=== PATIENT | female | born 1955 | race Caucasian/White ===

== ENCOUNTER 2020-02-12 13:43 | Outpatient (CLI) | payer OTHER, SELFPAY ==
--- NOTE | 2020-02-12 13:47 | MM_ITS ---
WS: [id number] BILATERAL DIGITAL SCREENING MAMMOGRAPHY WITH CAD CLINICAL INFORMATION: SCREENING HISTORY: Screening mammogram. No current complaints. COMPARISON: October 19, 2018 TECHNIQUE: Bilateral CC and MLO views. FINDINGS: Scattered fibroglandular densities bilaterally. No suspicious focal mass, asymmetry, calcifications, or architectural distortion. No evidence of malignancy. MM/[place] [id number] IMPRESSION: BI-RADS: 1-Negative FOLLOW UP: 1 Year Follow-up Recommend return to annual screening mammography.
== END 2020-02-12 13:44 | disposition home or self-care (01) ==
LOC: RADSHAW 13:46
PROVIDERS: PCP Internal Medicine; Visit Provider Internal Medicine
DX: Z12.31 Encounter for screening mammogram for malignant neoplasm of breast (principal)
CPT/HCPCS: 77067

== ENCOUNTER 2020-03-12 13:04 | Outpatient (CLI) | payer OTHER, SELFPAY ==
[2020-03-12 13:42] LABS: Basophils % 0.6 %; Eosinophils # 0.1 10^3/uL (0.0-0.8); Eosinophils % 2.3 %; Hematocrit 37.4 % (37.0-47.0); Hemoglobin 12.2 g/dL (11.5-15.3); Lymphocytes # 0.5 10^3/uL (0.8-4.8); Lymphocytes % 15.5 %; Mean Corpuscular HGB Conc 32.6 g/dL (30.0-36.0); Mean Corpuscular Hemoglobin 28.7 pg (28.0-34.0); Mean Platelet Volume 12.4 fL (7.4-10.4); Monocytes # 0.3 10^3/uL (0.2-0.9); Neutrophils # 2.17 10^3/uL (1.8-7.7); Neutrophils % 70.3 %; Nucleated Red Blood Cells % 0 %; Platelet Count 139 10^3/cmm (130-400); Red Blood Count 4.25 10^6/uL (4.1-5.3); Red Cell Distribution Width 13.3 % (12.1-15.1); White Blood Count 3.1 10^3/uL (4.0-10.0)
[2020-03-12 13:59] LABS: Alanine Aminotransferase 19 U/L (0-33); Albumin Level 4.6 g/dL (3.5-5.2); Alkaline Phosphatase 96 IU/L (35-105); Aspartate Amino Transferase 21 U/L (0-32); Blood Urea Nitrogen 17 mg/dL (8-23); Calcium 9.3 mg/dL (8.5-10.5); Carbon Dioxide 24 mmol/L (22-29); Chloride 107 mmol/L (98-107); Globulin 2.2 g/dL (1.3-4.6); Glucose 119 mg/dL (65-115); Lactate Dehydrogenase 258 U/L (135-214); Osmolality Calculated 290 mOsm/kg (285-295); Sodium 141 mmol/L (136-145); Total Bilirubin 0.2 mg/dL (0.15-1.2); Total Protein 6.8 g/dL (6.6-8.7)
[2020-03-12 15:55] LABS: Erythrocyte Sedimentation Rate 24 mm/hr (0-15)
--- NOTE | 2020-03-12 18:34 | ONC FU_ITS ---
Dr. Gonzalez Patient Follow-Up Note Patient: Danny Min Unit #: [id number]: [id number] Dicatated By: Werner Gonzalez M.D.Date of Visit:Mar 12, 2020 Onc Med Follow-up/Prog Note Chief Complaint: Pancytopenia. 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 She had become acutely ill requiring hospital admission on 11/12/2017. Her symptoms included fever as high as 104???, high blood pressure, and tachycardia. She was admitted with a presumptive diagnosis of urinary tract infection and sepsis. Her urine culture subsequently did grow Escherichia coli, but blood culture was negative. Her initial CBC showed borderline hemoglobin at 12.7 g with white blood cell count low at 2100 and platelet count low at 67,000. The absolute neutrophil count was 1700. The red cell indices were in the low-normal range. The alkaline phosphatase was minimally elevated 119/117 IU/L. The other liver enzymes and the bilirubin were normal. She was discharged on 11/15/2017 to continue antibiotic coverage with Levaquin 750 mg daily. Her CBC at discharge showed hemoglobin 10.5 g, white blood cell count 4700, and platelet count 72,000. On 11/24/2017 she was back in the emergency room with fever and diffuse maculopapular skin eruption. This was ultimately determined to be a hypersensitivity reaction to Dexilant. However, her repeat laboratory studies on 11/25/2017 showed hemoglobin 10.2 g with white blood cell count back down to 1800 and platelet count 54,000. The absolute neutrophil count was 1200. Her B12 level was normal at 533 pg/mL. LDH was mildly elevated at 259/246 U/L. Serum iron studies show transferrin saturation slightly low at 19.9%. The ferritin was elevated at 423 ng/mL. Sedimentation rate was significantly elevated at 86 mm/hour with CRP mildly elevated at 1.810 mg/dL. The protein electrophoresis had a normal pattern. Blood cultures were again negative. Stool FIT was negative. She was discharged home on Protonix, which she stopped taking, as it was causing abdominal cramping and diarrhea. In the meantime, on 11/29/2017 she underwent outpatient bone marrow aspiration/biopsy. The preliminary findings include hypercellularity, estimated at 80-85%, but with no evidence of infiltrative process and just limited megakaryocyte dyspoiesis. Lymphoid aggregates were present and appeared to be benign. Iron stores were 2+/4+. There were no ring sideroblasts noted. The flow cytometry showed no aberrant myeloid or lymphoid populations. The FISH panel for MDS was unrevealing, and the standard chromosome analysis was normal. Overall, the findings were nonspecific. I had seen her initially on 12/01/2017. At that point her symptoms were improving, and her blood counts also appeared to be recovering. Her platelet count had increased to 121,000 with white blood cell count 3200 and hemoglobin 12.9 g. Given the bone marrow findings, I had recommended observation/expectant management. As of her follow-up visit on 12/29/2017 her platelet count had dropped back down to 23,000 with white blood cell count decreased to 2300 and hemoglobin stable at 11.8 g. During subsequent follow-up, there was further decrease in the platelet count to 10,000 with WBC 1500 and Hg 12.2 g. She was then treated with IVIG 1 gm/kg by IV infusion on 01/09 and 01/10/2018. She had some headache and some anxiety with the IVIG, but she otherwise tolerated it well. As of 01/15/2018 her platelet had increased to 66,000 with WBC 2600 and hemoglobin 11.5 gm. Her sedimentation rate remained significantly elevated at 74 mm/hour. She was then followed on observation. As of 02/07/2018 her platelet count had dropped back down to 8000. Her white count at that point had decreased to 1800 with absolute neutrophil count 1000. The hemoglobin was down slightly, to 10.7 g. She was then retreated with IVIG 1 g/kg but IV infusion daily for 2 days, completed on 02/10/2018. Her repeat CBC on 02/12/2018 showed hemoglobin 10.0 g with white blood cell count increased to 4700 and platelet count back up to 54,000. She then started prednisone at 20 mg 3 times a day. As of her follow-up visit on 02/23/2018 her platelet count had increased to 119,000 with hemoglobin 11.6 g and white blood cell count 8700. Her sedimentation rate was still significantly elevated at 76 mm/hour. Her prednisone dosage was reduced to 20 mg twice a day. She was then seen again on 03/27/2018. Her blood counts were basically stable, and she appeared stable clinically. Her prednisone dosage was reduced to 20 mg daily. As a precaution, I did have her further evaluated with CT scans of chest, abdomen, and pelvis. The previously described iliac chain lymphadenopathy had resolved. There were no other significant findings. Had a follow-up visit on 05/03/2018 her blood counts have remained stable and she appeared stable clinically. Her prednisone dosage was reduced to 10 mg daily. In July it was further reduced to 5 mg daily. At her follow-up visit on 11/06/2018 her blood counts appeared stable. Over the next 4 weeks the prednisone was further tapered and discontinued. As of her follow-up visit in January 2019 her blood counts appeared stable. She was having more joint pain, and she had developed some mild swelling. She also had been treated for superficial phlebitis of her right leg. At that point she had started meloxicam for the joint pain, and she was given a prescription for furosemide for the swelling. She continued observation/expectant management for the pancytopenia. Her other medical illnesses include dyslipidemia, hypothyroidism, degenerative arthritis/degenerative disease of the spine, chronic migraine, and anxiety/depression. Her only surgery was a partial hysterectomy in 1989. She is a nonsmoker. INTERIM HISTORY: She is seen for a follow-up visit. She has been feeling good generally. She says her energy improved somewhat with an increase in her levothyroxine dosage. She has normal activity. Her appetite is good. She has not had fever. She does have some hot flashes. She has sinus drainage with occasional cough. She does not complain of shortness of breath or chest pain. She has no GI or complaints. She has some joint stiffness and soreness, mainly in the mornings. She has headache associated with neck pain, but recently that has not been too bad. She has numbness/tingling in her hands and feet. She has some bruising, but not bad. Medications: B-12 1 Tablet (of 1000 mcg) Oral daily, BuPROPion HCl ER (XL) 1 Tablet (of 300 mg) Tablet SR 24 HR Oral daily, Calcium 1 Tablet Oral daily, Cetirizine HCl 1 Tablet (of 10 mg) Oral daily, Cholecalciferol 2 Tablet (of 5000 Units) Oral q 7 days, Cranberry Extract 1 Capsule (of 200 mg) Oral daily, Famotidine 1 Tablet (of 40 mg) Oral daily, Gabapentin 2 Capsule (of 300 mg) Oral b.i.d., Lasix 1 Tablet (of 20 mg) Oral daily PRN, Levothyroxine Sodium 1 Tablet (of 88 mcg) Oral daily, Magnesium 1 Tablet (of 250 mg) Oral daily, Meloxicam 1 Tablet (of 15 mg) Oral daily, Osteo Bi-Flex Regular Strength 1 Tablet (of 250-200 mg) Oral daily, Potassium Chloride ER 1 Tablet (of 10 meq) Tablet, controlled release Oral daily, Probiotic 1 Capsule Oral daily, Simvastatin 1 Tablet (of 20 mg) Oral daily, Singulair 1 Tablet (of 10 mg) Oral daily, Tramadol-Acetaminophen 1 Tablet (of 37.5-325 mg) Oral b.i.d. PRN Allergies: Bacitracin, Celecoxib, Clarithromycin, Clindamycin HCl, Excedrin Back & Body, Neomycin Sulfate, and Polymyxin B Sulfate. Review of Systems: Constitutional - She is feeling good and her energy has improved since her levothyroxine was increased. She has normal activity. Her appetite is good and weight is up a few pounds. No fevers. She continues to have some hot flashes with sweating. ECOG score is 0, ENMT - She has sinus congestion/drainage. No mouth sores. No sore throat or difficulty swallowing, Hematologic/Lymphatic - She bruises easily, Respiratory - No shortness of breath. She has just occasional cough. No pleuritic pain or hemoptysis, Cardiovascular - No angina pain. No palpitations, Gastrointestinal - No nausea or vomiting. Her heartburn is adquately managed with famotidine. No diarrhea or constipation. No blood in the stool or black stools, Genitourinary (F) - No dysuria or hematuria. She has urinary frequency. No urgency or incontinence, Musculoskeletal - She has some joint stiffiness and soreness, especially in the mornings, Integumentary - No skin complications, Neurologic - No headache or dizziness. She has some occasional numbness and tingling in her fingers. No other focal neurologic symptoms, Psychiatric - No anxiety or depression. No insomnia. Vital Signs: Blood pressure 151/68, pulse 70, respirations 20, temp 97.4 degrees, oxygen saturation 97%. Her weight is 175 pounds. Physical Examination: Constitutional - She looks good generally, Eyes - Sclerae nonicteric. Conjunctivae clear, ENMT - No lesions in the oral cavity, Hematologic/Lymphatic - No cervical, clavicular, or axillary adenopathy, Respiratory - Lungs are clear with good air movement bilaterally, Cardiovascular - Heart rhythm is regular. There is no murmur, gallop or rub noted, Abdomen - Soft. Liver and spleen are not enlarged. There is no abdominal mass or ascites noted and there is no inguinal adenopathy, Extremities - Slight edema. There are just a few scattered ecchymoses, Neurologic - No focal neurologic deficits noted. Lab/Imaging: Test performed on Mar 12, 2020 13:15 LDH (Total) 258 U/L Sodium 141 mmol/L Potassium 4.0 mmol/L Chloride 107 mmol/L CO2 24 mmol/L Anion Gap 14.0 BUN 17 mg/dL Creatinine 0.9 mg/dL Cr Clearance (Est) 74.4300 mL/min eGFR 63.0 mL/min Glucose 119 mg/dL Calcium 9.3 mg/dL Protein, Total 6.8 g/dL Albumin 4.6 g/dL Globulin 2.2 g/dL Bilirubin, Total 0.2 mg/dL ALT (SGPT) 19 U/L AST (SGOT) 21 U/L Alkaline Phosphatase 96 IU/L ESR (Sed Rate) 24 mm/hr WBC 3.1 10 3/uL RBC 4.25 10 6/uL HGB 12.2 g/dL HCT 37.4 % MCV 88.0 fL MCH 28.7 pg MCHC 32.6 g/dL RDW 13.3 % Platelet Count 139 10 3/cmm MPV 12.4 fL Neutrophils 2.17 10 3/uL Lymphocytes 0.5 10 3/uL Monocytes 0.3 10 3/uL Eosinophils 0.1 10 3/uL Basophils 0.0 10 3/uL Neutrophil % 70.3 % Lymphocyte % 15.5 % Monocyte % 11.0 % Eosinophil % 2.3 % Basophils % 0.6 % NRBC % 0 % Impression: 1. Patient had presented with mild to moderately severe pancytopenia. Etiology was uncertain, but I it appeared to be most likely postinfectious. Bone marrow aspiration/biopsy on 11/29/2017 showed hypercellularity at 80-85%. There were no other diagnostic findings. 2. She had a hospital admission on 11/12/2017 for Escherichia coli urinary tract infection with associated sepsis. 3. She had a second hospital admission on 11/25/2017 for hypersensitivity reaction to Dexilant. Her other medical illnesses include: 4. Dyslipidemia. 5. Hypothyroidism. 6. Degenerative arthritis/degenerative disease of the spine. 7. Seasonal allergies. 8. She has a history of chronic migraine. 9. She has chronic anxiety/depression. Initially, she appeared to be showing recovery of her blood counts, and her symptoms had mostly resolved. However, her repeat CBC from 12/29/2017 still showed mild anemia along with some decline in her neutrophil count and a significant decline in her platelet count. During subsequent follow-up, the platelet count continued to decline. As of 01/08/2018 was down to 10,000. Her hemoglobin was stable at 12.2 g, but her white blood cell count had decreased to 1500. Given the predominant thrombocytopenia in the setting of nonspecific bone marrow findings, I had suspected that at least some component of it was immune mediated. She was then given empiric treatment with IVIG, 75 g by IV infusion on 01/09 and 01/10/2018. She did show some response with her platelet count increasing to 66,000 on 01/15/2018. Her hemoglobin at that point was stable at 11.7 g. Her white blood cell count had increased slightly, to 2300. Her sedimentation rate remained moderately elevated at 74 mm/hour. She was then followed on observation. As of 02/07/2018 her platelet count had dropped back down to 8000. Her hemoglobin was down slightly to 10.7 g. Her white blood cell count had decreased to 1800 with absolute neutrophil count 1000. She was retreated with IVIG, 1 g/kg by IV infusion daily for 2 days, completed on 02/10/2018. She again showed a modest response. As of 02/12/2018 she was then started on steroid therapy with prednisone 20 mg 3 times a day. She had a very significant response to the prednisone, though during follow-up she continued to have mild thrombocytopenia. Her sedimentation rate had initially remained significantly elevated, but it did gradually come down. She was able to gradually taper down her steroid dosage. At her followup visit on 11/06/2018 she appeared stable clinically. Over the next 4 weeks her prednisone was tapered off and discontinued. During subsequent follow-up she required treatment superficial phlebitis of her right leg. At her follow-up visit in January 2019 she reported increased pain and swelling in her hands and in her lower extremities, but her blood counts appeared stable. She had symptomatic improvement on meloxicam and furosemide. She continued observation/expectant management for the low blood counts. At this point she continues to have some fatigue and she still has some mild joint pain and stiffness. Her energy has improved somewhat with an increase in her levothyroxine dosage. She continues to have mild neutropenia and a borderline platelet count, but her blood counts are stable. Overall, she appears to be doing well clinically. Plan: She remains on observation/expectant management for the thrombocytopenia. She has follow-up scheduled with Dr. Denis in July. As such, I will schedule her for a repeat CBC in May and for a follow-up visit in October 2020. Signed By: Werner Gonzalez M.D. <<Signature on File>>
== END 2020-03-12 13:05 | disposition home or self-care (01) ==
LOC: ONCMED 13:07
PROVIDERS: PCP Internal Medicine; Visit Provider Internal Medicine Medical Oncology
DX: D69.3 Immune thrombocytopenic purpura (principal); E78.5 Hyperlipidemia, unspecified; E03.9 Hypothyroidism, unspecified; M19.90 Unspecified osteoarthritis, unspecified site; G43.709 Chronic migraine without aura, not intractable, without status migrainosus
CPT/HCPCS: 80053; 83615; 85025; 85651; G0463

== ENCOUNTER 2020-06-15 10:09 | Outpatient (CLI) | payer OTHER, SELFPAY ==
[2020-06-15 11:07] LABS: Basophils % 0.7 %; Eosinophils # 0.1 10^3/uL (0.0-0.8); Hematocrit 37.4 % (37.0-47.0); Hemoglobin 12.3 g/dL (11.5-15.3); Lymphocytes # 0.5 10^3/uL (0.8-4.8); Lymphocytes % 15.3 %; Mean Corpuscular HGB Conc 32.9 g/dL (30.0-36.0); Mean Corpuscular Hemoglobin 28.7 pg (28.0-34.0); Mean Corpuscular Volume 87.4 fL (81-99); Mean Platelet Volume 12.6 fL (7.4-10.4); Monocytes # 0.3 10^3/uL (0.2-0.9); Neutrophils # 2.12 10^3/uL (1.8-7.7); Neutrophils % 70.7 %; Nucleated Red Blood Cells % 0 %; Platelet Count 135 10^3/cmm (130-400); Red Blood Count 4.28 10^6/uL (4.1-5.3); Red Cell Distribution Width 13.2 % (12.1-15.1)
== END 2020-06-15 10:10 | disposition home or self-care (01) ==
LOC: ONCMED 10:10
PROVIDERS: PCP Internal Medicine; Visit Provider Internal Medicine Medical Oncology
DX: D69.6 Thrombocytopenia, unspecified (principal)
CPT/HCPCS: 36415; 85025

== ENCOUNTER 2020-11-09 13:01 | Outpatient (CLI) | payer MEDICARE, BC, SELFPAY ==
[2020-11-09 13:44] LABS: Basophils % 0.7 %; Eosinophils # 0.1 10^3/uL (0.0-0.8); Eosinophils % 3.1 %; Hematocrit 37.9 % (37.0-47.0); Hemoglobin 12.4 g/dL (11.5-15.3); Lymphocytes # 0.4 10^3/uL (0.8-4.8); Lymphocytes % 13.3 %; Mean Corpuscular HGB Conc 32.7 g/dL (30.0-36.0); Mean Corpuscular Hemoglobin 28.9 pg (28.0-34.0); Mean Corpuscular Volume 88.3 fL (81-99); Mean Platelet Volume 12.3 fL (7.4-10.4); Monocytes # 0.3 10^3/uL (0.2-0.9); Monocytes % 10.9 %; Neutrophils % 71.7 %; Nucleated Red Blood Cells % 0 %; Platelet Count 141 10^3/cmm (130-400); Red Blood Count 4.29 10^6/uL (4.1-5.3); Red Cell Distribution Width 13.7 % (12.1-15.1); White Blood Count 2.9 10^3/uL (4.0-10.0)
[2020-11-09 14:07] LABS: Alanine Aminotransferase 18 U/L (0-33); Albumin Level 4.1 g/dL (3.5-5.2); Alkaline Phosphatase 102 IU/L (35-105); Aspartate Amino Transferase 18 U/L (0-32); Blood Urea Nitrogen 19 mg/dL (8-23); Calcium 9.1 mg/dL (8.5-10.5); Carbon Dioxide 24 mmol/L (22-29); Chloride 106 mmol/L (98-107); Globulin 2.9 g/dL (1.3-4.6); Glomerular Filtration Rate 62.8 mL/min (90-130); Glucose 107 mg/dL (65-115); Lactate Dehydrogenase 219 U/L (135-214); Osmolality Calculated 291 mOsm/kg (285-295); Sodium 139 mmol/L (136-145); Total Bilirubin 0.2 mg/dL (0.15-1.2)
--- NOTE | 2020-11-09 18:32 | ONC FU_ITS ---
Dr. Gonzalez Patient Follow-Up Note Patient: Danny Min Unit #: [id number]: 1955 Dicatated By: Werner Gonzalez M.D.Date of Visit:Nov 09, 2020 Onc Med Follow-up/Prog Note Chief Complaint: Pancytopenia. 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 She had become acutely ill requiring hospital admission on 11/12/2017. Her symptoms included fever as high as 104???, high blood pressure, and tachycardia. She was admitted with a presumptive diagnosis of urinary tract infection and sepsis. Her urine culture subsequently did grow Escherichia coli, but blood culture was negative. Her initial CBC showed borderline hemoglobin at 12.7 g with white blood cell count low at 2100 and platelet count low at 67,000. The absolute neutrophil count was 1700. The red cell indices were in the low-normal range. The alkaline phosphatase was minimally elevated 119/117 IU/L. The other liver enzymes and the bilirubin were normal. She was discharged on 11/15/2017 to continue antibiotic coverage with Levaquin 750 mg daily. Her CBC at discharge showed hemoglobin 10.5 g, white blood cell count 4700, and platelet count 72,000. On 11/24/2017 she was back in the emergency room with fever and diffuse maculopapular skin eruption. This was ultimately determined to be a hypersensitivity reaction to Dexilant. However, her repeat laboratory studies on 11/25/2017 showed hemoglobin 10.2 g with white blood cell count back down to 1800 and platelet count 54,000. The absolute neutrophil count was 1200. Her B12 level was normal at 533 pg/mL. LDH was mildly elevated at 259/246 U/L. Serum iron studies show transferrin saturation slightly low at 19.9%. The ferritin was elevated at 423 ng/mL. Sedimentation rate was significantly elevated at 86 mm/hour with CRP mildly elevated at 1.810 mg/dL. The protein electrophoresis had a normal pattern. Blood cultures were again negative. Stool FIT was negative. She was discharged home on Protonix, which she stopped taking, as it was causing abdominal cramping and diarrhea. In the meantime, on 11/29/2017 she underwent outpatient bone marrow aspiration/biopsy. The preliminary findings include hypercellularity, estimated at 80-85%, but with no evidence of infiltrative process and just limited megakaryocyte dyspoiesis. Lymphoid aggregates were present and appeared to be benign. Iron stores were 2+/4+. There were no ring sideroblasts noted. The flow cytometry showed no aberrant myeloid or lymphoid populations. The FISH panel for MDS was unrevealing, and the standard chromosome analysis was normal. Overall, the findings were nonspecific. I had seen her initially on 12/01/2017. At that point her symptoms were improving, and her blood counts also appeared to be recovering. Her platelet count had increased to 121,000 with white blood cell count 3200 and hemoglobin 12.9 g. Given the bone marrow findings, I had recommended observation/expectant management. As of her follow-up visit on 12/29/2017 her platelet count had dropped back down to 23,000 with white blood cell count decreased to 2300 and hemoglobin stable at 11.8 g. During subsequent follow-up, there was further decrease in the platelet count to 10,000 with WBC 1500 and Hg 12.2 g. She was then treated with IVIG 1 gm/kg by IV infusion on 01/09 and 01/10/2018. She had some headache and some anxiety with the IVIG, but she otherwise tolerated it well. As of 01/15/2018 her platelet had increased to 66,000 with WBC 2600 and hemoglobin 11.5 gm. Her sedimentation rate remained significantly elevated at 74 mm/hour. She was then followed on observation. As of 02/07/2018 her platelet count had dropped back down to 8000. Her white count at that point had decreased to 1800 with absolute neutrophil count 1000. The hemoglobin was down slightly, to 10.7 g. She was then retreated with IVIG 1 g/kg but IV infusion daily for 2 days, completed on 02/10/2018. Her repeat CBC on 02/12/2018 showed hemoglobin 10.0 g with white blood cell count increased to 4700 and platelet count back up to 54,000. She then started prednisone at 20 mg 3 times a day. As of her follow-up visit on 02/23/2018 her platelet count had increased to 119,000 with hemoglobin 11.6 g and white blood cell count 8700. Her sedimentation rate was still significantly elevated at 76 mm/hour. Her prednisone dosage was reduced to 20 mg twice a day. She was then seen again on 03/27/2018. Her blood counts were basically stable, and she appeared stable clinically. Her prednisone dosage was reduced to 20 mg daily. As a precaution, I did have her further evaluated with CT scans of chest, abdomen, and pelvis. The previously described iliac chain lymphadenopathy had resolved. There were no other significant findings. Had a follow-up visit on 05/03/2018 her blood counts have remained stable and she appeared stable clinically. Her prednisone dosage was reduced to 10 mg daily. In July it was further reduced to 5 mg daily. At her follow-up visit on 11/06/2018 her blood counts appeared stable. Over the next 4 weeks the prednisone was further tapered and discontinued. As of her follow-up visit in January 2019 her blood counts appeared stable. She was having more joint pain, and she had developed some mild swelling. She also had been treated for superficial phlebitis of her right leg. At that point she had started meloxicam for the joint pain, and she was given a prescription for furosemide for the swelling. She continued observation/expectant management for the pancytopenia. Her other medical illnesses include dyslipidemia, hypothyroidism, degenerative arthritis/degenerative disease of the spine, chronic migraine, and anxiety/depression. Her only surgery was a partial hysterectomy in 1989. She is a nonsmoker. INTERIM HISTORY: She is seen for a follow-up visit. She has been feeling good generally. Her energy is not as good some days, but she has normal activity. ECOG score 0. Her appetite has been good. She has not had fever or night sweats. She occasionally has mild hot flashes, attributable to medication. She does not complain of shortness of breath, cough, or chest pain. She has no GI or complaints. Her joints have been a little sore, mainly her hands, and especially in the mornings. It is managed adequately with meloxicam. She has occasional sinus headache. She does not complain of dizziness. She has no focal neurologic symptoms. She has no abnormal bruising or bleeding. Medications: B-12 1 Tablet (of 1000 mcg) Oral daily, BuPROPion HCl ER (XL) 1 Tablet (of 300 mg) Tablet SR 24 HR Oral daily, Calcium 1 Tablet Oral daily, Cetirizine HCl 1 Tablet (of 10 mg) Oral daily, Cholecalciferol 2 Tablet (of 5000 Units) Oral q 7 days, Cranberry Extract 1 Capsule (of 200 mg) Oral daily, Famotidine 1 Tablet (of 40 mg) Oral daily, Gabapentin 2 Capsule (of 300 mg) Oral b.i.d., Lasix 1 Tablet (of 20 mg) Oral daily PRN, Levothyroxine Sodium 1 Tablet (of 88 mcg) Oral daily, Magnesium 1 Tablet (of 250 mg) Oral daily, Meloxicam 1 Tablet (of 15 mg) Oral daily, Osteo Bi-Flex Regular Strength 1 Tablet (of 250-200 mg) Oral daily, Potassium Chloride ER 1 Tablet (of 10 meq) Tablet, controlled release Oral daily, Probiotic 1 Capsule Oral daily, Simvastatin 1 Tablet (of 20 mg) Oral daily, Singulair 1 Tablet (of 10 mg) Oral daily, Tramadol-Acetaminophen 1 Tablet (of 37.5-325 mg) Oral b.i.d. PRN Allergies: Bacitracin, Celecoxib, Clarithromycin, Clindamycin HCl, Excedrin Back & Body, Neomycin Sulfate, and Polymyxin B Sulfate. Vital Signs: Performed on Nov 09, 2020 15:18 Height - 65.00 in Weight - 172.6 lbs (LOW) BSA - 1.86 sq.m BMI - 28.72 Temperature - 97.5 F (LOW) Pulse - 68 /min Respiration - 18 /min BP - 172/81 mm(hg) (HIGH) O2 Sat - 96 % Pain - 0 Fatigue - 0 Physical Examination: Constitutional - She looks good generally, Eyes - Sclerae nonicteric. Conjunctivae clear, ENMT - No lesions in the oral cavity, Hematologic/Lymphatic - No cervical, clavicular, or axillary adenopathy, Respiratory - Lungs are clear with good air movement bilaterally, Cardiovascular - Heart rhythm is regular. There is no murmur, gallop, or rub noted, Abdomen - Soft. Liver and spleen are not enlarged. There is no abdominal mass or ascites noted and there is no inguinal adenopathy, Extremities - No edema, Neurologic - No focal neurologic deficits noted. Lab/Imaging: Test performed on Nov 09, 2020 13:19 LDH (Total) 219 U/L Sodium 139 mmol/L Potassium 4.0 mmol/L Chloride 106 mmol/L CO2 24 mmol/L Anion Gap 13.0 BUN 19 mg/dL Creatinine 0.9 mg/dL Cr Clearance (Est) 73.4500 mL/min eGFR 62.8 mL/min Glucose 107 mg/dL Osmolality - Calculated 291 mOsm/kg Calcium 9.1 mg/dL Protein, Total 7.0 g/dL Albumin 4.1 g/dL Globulin 2.9 g/dL Bilirubin, Total 0.2 mg/dL ALT (SGPT) 18 U/L AST (SGOT) 18 U/L Alkaline Phosphatase 102 IU/L WBC 2.9 10 3/uL RBC 4.29 10 6/uL HGB 12.4 g/dL HCT 37.9 % MCV 88.3 fL MCH 28.9 pg MCHC 32.7 g/dL RDW 13.7 % Platelet Count 141 10 3/cmm MPV 12.3 fL Neutrophils 2.10 10 3/uL Lymphocytes 0.4 10 3/uL Monocytes 0.3 10 3/uL Eosinophils 0.1 10 3/uL Basophils 0.0 10 3/uL Neutrophil % 71.7 % Lymphocyte % 13.3 % Monocyte % 10.9 % Eosinophil % 3.1 % Basophils % 0.7 % NRBC % 0 % Problem List: 1. Patient was found in October 2017 to have mild to moderately severe pancytopenia. Etiology was uncertain. Initially it appeared to be most likely postinfectious, but ultimately it did appear to be most likely autoimmune. 2. Dyslipidemia. 3. Hypothyroidism. 4. Degenerative arthritis/degenerative disease of the spine. 5. Seasonal allergies. 6. She has a history of chronic migraine. 7. She has chronic anxiety/depression. Problems Addressed with this Encounter and Plan: Patient with mild to moderately severe pancytopenia, first discovered in October 2017 during a hospital admission for Escherichia coli urinary tract infection with associated sepsis. It was initially suspected to be postinfectious, but ultimately it appeared more likely to be autoimmune. Bone marrow aspiration/biopsy on 11/29/2017 showed hypercellularity at 80-85%. There were no other diagnostic findings. As of 01/08/2018 her platelet count had declined to 10,000. Her hemoglobin was stable at 12.2 g, but her white blood cell count had decreased to 1500. Given the predominant thrombocytopenia in the setting of nonspecific bone marrow findings, I had suspected that at least some component of it was immune mediated. She was then given empiric treatment with IVIG, 75 g by IV infusion on 01/09 and 01/10/2018. She did show some response with her platelet count increasing to 66,000 on 01/15/2018. Her hemoglobin at that point was stable at 11.7 g. Her white blood cell count had increased slightly, to 2300. Her sedimentation rate remained moderately elevated at 74 mm/hour. As of 02/07/2018 her platelet count had dropped back down to 8000. Her hemoglobin was down slightly to 10.7 g. Her white blood cell count had decreased to 1800 with absolute neutrophil count 1000. She was retreated with IVIG, 1 g/kg by IV infusion daily for 2 days, completed on 02/10/2018. She again showed a modest response. As of 02/12/2018 she started steroid therapy with prednisone 20 mg 3 times a day. She had a very significant response to the prednisone, though during follow-up she continued to have mild thrombocytopenia. Her sedimentation rate had initially remained significantly elevated, but it did gradually come down. She was then able to gradually taper down her steroid dosage. At her followup visit on 11/06/2018 she appeared stable clinically. Over the next 4 weeks her prednisone was tapered off and discontinued. During subsequent follow-up she has had some fatigue and some joint pain. Her blood counts, though, have been stable with mild to moderately severe leukopenia and with normal hemoglobin/hematocrit levels and normal platelet counts. Overall, she appears to be doing well clinically. She remains on observation/expectant management. She will have a repeat CBC with Dr. Denis in January. I will see her again in 6 months. Signed By: Werner Gonzalez M.D. <<Signature on File>>
== END 2020-11-09 13:02 | disposition home or self-care (01) ==
LOC: ONCMED 13:06
PROVIDERS: PCP Internal Medicine; Visit Provider Internal Medicine Medical Oncology
DX: D69.3 Immune thrombocytopenic purpura (principal); D61.818 Other pancytopenia; E78.5 Hyperlipidemia, unspecified; E03.9 Hypothyroidism, unspecified; M47.9 Spondylosis, unspecified; J30.9 Allergic rhinitis, unspecified; G43.919 Migraine, unspecified, intractable, without status migrainosus; F41.9 Anxiety disorder, unspecified; F32.9 Major depressive disorder, single episode, unspecified; Z79.899 Other long term (current) drug therapy
CPT/HCPCS: 36415; 80053; 83615; 85025; G0463

== ENCOUNTER 2021-03-11 09:02 | Outpatient (CLI) | payer MEDICARE, BC, SELFPAY ==
--- NOTE | 2021-03-11 09:12 | MM_ITS ---
WS: [id number] BILATERAL SCREENING DIGITAL MAMMOGRAM WITH CAD HISTORY: SCREENING COMPARISON: 02/12/2020 and 10/19/2018 Bilateral CC and MLO views submitted. Computer aided detection analyzed. Breast composition: There are scattered areas of fibroglandular density. No suspicious masses, microc alcifications or architectural distortion. MM/[id number] IMPRESSION: BI-RADS: 1-Negative FOLLOW UP: 1 Year Follow-up
== END 2021-03-11 09:03 | disposition home or self-care (01) ==
LOC: RADSHAW 09:09
PROVIDERS: PCP Internal Medicine; Visit Provider Internal Medicine
DX: Z12.31 Encounter for screening mammogram for malignant neoplasm of breast (principal)
CPT/HCPCS: 77067

== ENCOUNTER 2021-05-10 14:00 | Outpatient (CLI) | payer MEDICARE, BC, SELFPAY ==
[2021-05-10 15:35] LABS: Basophils % 0.6 %; Eosinophils # 0.1 10^3/uL (0.0-0.8); Eosinophils % 2.5 %; Hemoglobin 12.9 g/dL (11.5-15.3); Lymphocytes # 0.5 10^3/uL (0.8-4.8); Lymphocytes % 16.1 %; Mean Corpuscular HGB Conc 33.1 g/dL (30.0-36.0); Mean Corpuscular Volume 90.7 fl (81-99); Mean Platelet Volume 12.2 fL (7.4-10.4); Monocytes # 0.3 10^3/uL (0.2-0.9); Monocytes % 10.4 %; Neutrophils # 2.22 10^3/uL (1.8-7.7); Neutrophils % 70.4 %; Nucleated Red Blood Cells % 0 %; Platelet Count 134 10^3/cmm (130-400); Red Cell Distribution Width 13.6 % (12.1-15.1); White Blood Count 3.2 10^3/uL (4.0-10.0)
[2021-05-10 16:00] LABS: Alanine Aminotransferase 16 U/L (0-33); Albumin Level 4.2 g/dL (3.5-5.2); Alkaline Phosphatase 101 IU/L (35-105); Aspartate Amino Transferase 17 U/L (0-32); Blood Urea Nitrogen 16 mg/dL (8-23); Carbon Dioxide 27 mmol/L (22-29); Chloride 104 mmol/L (98-107); Glucose 113 mg/dL (65-115); Lactate Dehydrogenase 263 U/L (135-214); Osmolality Calculated 292 mOsm/kg (285-295); Sodium 140 mmol/L (136-145); Total Bilirubin 0.2 mg/dL (0.15-1.2); Total Protein 7.2 g/dL (6.6-8.7)
[2021-05-10 16:48] LABS: Erythrocyte Sedimentation Rate 27 mm/hr (0-15)
== END 2021-05-10 14:01 | disposition home or self-care (01) ==
LOC: ONCMED 14:08
PROVIDERS: PCP Internal Medicine; Visit Provider Internal Medicine Medical Oncology
DX: D69.3 Immune thrombocytopenic purpura (principal); D61.818 Other pancytopenia
CPT/HCPCS: 36415; 80053; 83615; 85025; 85651

== ENCOUNTER 2021-05-11 06:05 | Outpatient (CLI) | payer MEDICARE, BC, SELFPAY ==
--- NOTE | 2021-05-11 15:55 | ONC FU_ITS ---
Dr. Gonzalez Patient Follow-Up Note Patient: Danny Min Unit #: [id number]: 1955 Dicatated By: Werner Gonzalez M.D.Date of Visit:May 11, 2021 Onc Med Follow-up/Prog Note Chief Complaint: Pancytopenia. 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 She had become acutely ill requiring hospital admission on 11/12/2017. Her symptoms included fever as high as 104???, high blood pressure, and tachycardia. She was admitted with a presumptive diagnosis of urinary tract infection and sepsis. Her urine culture subsequently did grow Escherichia coli, but blood culture was negative. Her initial CBC showed borderline hemoglobin at 12.7 g with white blood cell count low at 2100 and platelet count low at 67,000. The absolute neutrophil count was 1700. The red cell indices were in the low-normal range. The alkaline phosphatase was minimally elevated 119/117 IU/L. The other liver enzymes and the bilirubin were normal. She was discharged on 11/15/2017 to continue antibiotic coverage with Levaquin 750 mg daily. Her CBC at discharge showed hemoglobin 10.5 g, white blood cell count 4700, and platelet count 72,000. On 11/24/2017 she was back in the emergency room with fever and diffuse maculopapular skin eruption. This was ultimately determined to be a hypersensitivity reaction to Dexilant. However, her repeat laboratory studies on 11/25/2017 showed hemoglobin 10.2 g with white blood cell count back down to 1800 and platelet count 54,000. The absolute neutrophil count was 1200. Her B12 level was normal at 533 pg/mL. LDH was mildly elevated at 259/246 U/L. Serum iron studies show transferrin saturation slightly low at 19.9%. The ferritin was elevated at 423 ng/mL. Sedimentation rate was significantly elevated at 86 mm/hour with CRP mildly elevated at 1.810 mg/dL. The protein electrophoresis had a normal pattern. Blood cultures were again negative. Stool FIT was negative. She was discharged home on Protonix, which she stopped taking, as it was causing abdominal cramping and diarrhea. In the meantime, on 11/29/2017 she underwent outpatient bone marrow aspiration/biopsy. The preliminary findings include hypercellularity, estimated at 80-85%, but with no evidence of infiltrative process and just limited megakaryocyte dyspoiesis. Lymphoid aggregates were present and appeared to be benign. Iron stores were 2+/4+. There were no ring sideroblasts noted. The flow cytometry showed no aberrant myeloid or lymphoid populations. The FISH panel for MDS was unrevealing, and the standard chromosome analysis was normal. Overall, the findings were nonspecific. I had seen her initially on 12/01/2017. At that point her symptoms were improving, and her blood counts also appeared to be recovering. Her platelet count had increased to 121,000 with white blood cell count 3200 and hemoglobin 12.9 g. Given the bone marrow findings, I had recommended observation/expectant management. As of her follow-up visit on 12/29/2017 her platelet count had dropped back down to 23,000 with white blood cell count decreased to 2300 and hemoglobin stable at 11.8 g. During subsequent follow-up, there was further decrease in the platelet count to 10,000 with WBC 1500 and Hg 12.2 g. She was then treated with IVIG 1 gm/kg by IV infusion on 01/09 and 01/10/2018. She had some headache and some anxiety with the IVIG, but she otherwise tolerated it well. As of 01/15/2018 her platelet had increased to 66,000 with WBC 2600 and hemoglobin 11.5 gm. Her sedimentation rate remained significantly elevated at 74 mm/hour. She was then followed on observation. As of 02/07/2018 her platelet count had dropped back down to 8000. Her white count at that point had decreased to 1800 with absolute neutrophil count 1000. The hemoglobin was down slightly, to 10.7 g. She was then retreated with IVIG 1 g/kg but IV infusion daily for 2 days, completed on 02/10/2018. Her repeat CBC on 02/12/2018 showed hemoglobin 10.0 g with white blood cell count increased to 4700 and platelet count back up to 54,000. She then started prednisone at 20 mg 3 times a day. As of her follow-up visit on 02/23/2018 her platelet count had increased to 119,000 with hemoglobin 11.6 g and white blood cell count 8700. Her sedimentation rate was still significantly elevated at 76 mm/hour. Her prednisone dosage was reduced to 20 mg twice a day. She was then seen again on 03/27/2018. Her blood counts were basically stable, and she appeared stable clinically. Her prednisone dosage was reduced to 20 mg daily. As a precaution, I did have her further evaluated with CT scans of chest, abdomen, and pelvis. The previously described iliac chain lymphadenopathy had resolved. There were no other significant findings. Had a follow-up visit on 05/03/2018 her blood counts have remained stable and she appeared stable clinically. Her prednisone dosage was reduced to 10 mg daily. In July it was further reduced to 5 mg daily. At her follow-up visit on 11/06/2018 her blood counts appeared stable. Over the next 4 weeks the prednisone was further tapered and discontinued. As of her follow-up visit in January 2019 her blood counts appeared stable. She was having more joint pain, and she had developed some mild swelling. She also had been treated for superficial phlebitis of her right leg. At that point she had started meloxicam for the joint pain, and she was given a prescription for furosemide for the swelling. She continued expectant management for the pancytopenia. Her other medical illnesses include dyslipidemia, hypothyroidism, degenerative arthritis/degenerative disease of the spine, chronic migraine, and anxiety/depression. Her only surgery was a partial hysterectomy in 1989. She is a nonsmoker. INTERIM HISTORY: She is seen for a follow-up visit. She has been feeling pretty good generally. She does have some fatigue, but she has continued her normal activities. ECOG score is 0. She has good appetite. She has not had fever. She does have some hot flashes and sweating, at least some of which she attributes to bupropion. She has some sinus drainage. She has not had sore mouth or throat. She does not complain of shortness of breath, cough, or chest pain. She has no GI/ complaints other than a little bit of heartburn. Her joint pain has been pretty well managed with the meloxicam. She has occasional sinus headache. She has a little bit of numbness in her hands. Medications: B-12 1 Tablet (of 1000 mcg) Oral daily, BuPROPion HCl ER (XL) 1 Tablet (of 300 mg) Tablet SR 24 HR Oral daily, Calcium 1 Tablet Oral daily, Cetirizine HCl 1 Tablet (of 10 mg) Oral daily, Cholecalciferol 2 Tablet (of 5000 Units) Oral q 7 days, Cranberry Extract 1 Capsule (of 200 mg) Oral daily, Famotidine 1 Tablet (of 40 mg) Oral daily, Ferrous Sulfate (27 mg) Tablet Oral daily, Gabapentin 2 Capsule (of 300 mg) Oral b.i.d., Lasix 1 Tablet (of 20 mg) Oral daily PRN, Levothyroxine Sodium 1 Tablet (of 88 mcg) Oral daily, Magnesium 1 Tablet (of 250 mg) Oral daily, Meloxicam 1 Tablet (of 15 mg) Oral daily, Osteo Bi-Flex Regular Strength 1 Tablet (of 250-200 mg) Oral daily, Potassium Chloride ER 1 Tablet (of 10 meq) Tablet, controlled release Oral daily, Probiotic 1 Capsule Oral daily, Simvastatin 1 Tablet (of 20 mg) Oral daily, Singulair 1 Tablet (of 10 mg) Oral daily, Tramadol-Acetaminophen 1 Tablet (of 37.5-325 mg) Oral b.i.d. PRN Allergies: Bacitracin, Celecoxib, Clarithromycin, Clindamycin HCl, Excedrin Back & Body, Neomycin Sulfate, and Polymyxin B Sulfate. Vital Signs: Performed on May 11, 2021 09:36 Height - 65.00 in Weight - 175.2 lbs (HIGH) BSA - 1.87 sq.m BMI - 29.15 Temperature - 96.3 F (LOW) Pulse - 71 /min Respiration - 18 /min BP - 158/76 mm(hg) (HIGH) Pain - 0 Fatigue - 0 Physical Examination: Constitutional - She looks good generally, Eyes - Sclerae nonicteric. Conjunctivae clear, ENMT - No lesions in the oral cavity, Hematologic/Lymphatic - No cervical, clavicular, or axillary adenopathy, Respiratory - Lungs are clear with good air movement bilaterally, Cardiovascular - Heart rhythm is regular. There is no murmur, gallop, or rub noted, Abdomen - Soft. Liver and spleen are not enlarged. There is no abdominal mass or ascites noted and there is no inguinal adenopathy, Extremities - No edema. Dorsalis pedis pulses are palpable bilaterally, Neurologic - No focal neurologic deficits noted. Lab/Imaging: CBC shows hemoglobin 12.9 g and hematocrit 39.0%. Red cell indices are normal. The white blood cell count is 3200 with absolute neutrophil count 2200. Platelet count is 134,000. Sed rate is just slightly elevated at 27 mm/h. Comprehensive metabolic profile is unremarkable. LDH is mildly elevated 263/214 U/L. Problem List: 1. Patient was found in October 2017 to have mild to moderately severe pancytopenia. Etiology was uncertain. Initially it appeared to be most likely postinfectious, but ultimately it did appear to be most likely autoimmune. 2. Dyslipidemia. 3. Hypothyroidism. 4. Degenerative arthritis/degenerative disease of the spine. 5. Seasonal allergies. 6. She has a history of chronic migraine. 7. She has chronic anxiety/depression. Problems Addressed with this Encounter and Plan: Patient with mild to moderately severe pancytopenia, first discovered in October 2017 during a hospital admission for Escherichia coli urinary tract infection with associated sepsis. It was initially suspected to be postinfectious, but ultimately it appeared more likely to be autoimmune. Bone marrow aspiration/biopsy on 11/29/2017 showed hypercellularity at 80-85%. There were no other diagnostic findings. As of 01/08/2018 her platelet count had declined to 10,000. Her hemoglobin was stable at 12.2 g, but her white blood cell count had decreased to 1500. Given the predominant thrombocytopenia in the setting of nonspecific bone marrow findings, I had suspected that at least some component of it was immune mediated. She was then given empiric treatment with IVIG, 75 g by IV infusion on 01/09 and 01/10/2018. She did show some response with her platelet count increasing to 66,000 on 01/15/2018. Her hemoglobin at that point was stable at 11.7 g. Her white blood cell count had increased slightly, to 2300. Her sedimentation rate remained moderately elevated at 74 mm/hour. As of 02/07/2018 her platelet count had dropped back down to 8000. Her hemoglobin was down slightly to 10.7 g. Her white blood cell count had decreased to 1800 with absolute neutrophil count 1000. She was retreated with IVIG, 1 g/kg by IV infusion daily for 2 days, completed on 02/10/2018. She again showed a modest response. As of 02/12/2018 she started steroid therapy with prednisone 20 mg 3 times a day. She had a very significant response to the prednisone, though during follow-up she continued to have mild thrombocytopenia. Her sedimentation rate had initially remained significantly elevated, but it did gradually come down. She was then able to gradually taper down her steroid dosage. At her followup visit on 11/06/2018 she appeared stable clinically. Over the next 4 weeks her prednisone was tapered off and discontinued. During subsequent follow-up she continued to have some fatigue and some joint pain. Her blood counts remained stable with mild to moderately severe leukopenia and with low normal hemoglobin/hematocrit levels and platelet counts. Overall, she appears to be doing well clinically. At this point she still has some mild fatigue, but she has normal activity. Her joint pain has been adequately managed with meloxicam. Her blood counts are basically stable with mild to moderately severe neutropenia and low normal hemoglobin/hematocrit levels and platelet count. She remains on expectant management. I will see her again in 6 months. Signed By: Werner Gonzalez M.D. <<Signature on File>>
== END 2021-05-11 06:06 | disposition home or self-care (01) ==
LOC: ONCMED 06:06
PROVIDERS: PCP Internal Medicine; Visit Provider Internal Medicine Medical Oncology
DX: D61.818 Other pancytopenia (principal); R53.83 Other fatigue; E78.5 Hyperlipidemia, unspecified; E03.9 Hypothyroidism, unspecified; M47.9 Spondylosis, unspecified; F41.8 Other specified anxiety disorders; Z79.899 Other long term (current) drug therapy; Z79.890 Hormone replacement therapy
CPT/HCPCS: G0463

== ENCOUNTER 2021-11-08 12:51 | Outpatient (CLI) | payer MEDICARE, BC, SELFPAY ==
[2021-11-08 14:09] LABS: Basophils % 0.6 %; Eosinophils # 0.1 10^3/uL (0.0-0.8); Eosinophils % 2.5 %; Hematocrit 38.6 % (37.0-47.0); Hemoglobin 12.9 g/dL (11.5-15.3); Lymphocytes # 0.5 10^3/uL (0.8-4.8); Lymphocytes % 15.9 %; Mean Corpuscular HGB Conc 33.4 g/dL (30.0-36.0); Mean Corpuscular Hemoglobin 29.3 pg (28.0-34.0); Mean Corpuscular Volume 87.5 fl (81-99); Mean Platelet Volume 11.9 fL (7.4-10.4); Monocytes # 0.4 10^3/uL (0.2-0.9); Monocytes % 12.2 %; Neutrophils # 2.19 10^3/uL (1.8-7.7); Neutrophils % 68.5 %; Nucleated Red Blood Cells % 0 %; Platelet Count 136 10^3/cmm (130-400); Red Blood Count 4.41 10^6/uL (4.1-5.3); Red Cell Distribution Width 13.4 % (12.1-15.1); White Blood Count 3.2 10^3/uL (4.0-10.0)
[2021-11-08 14:24] LABS: Erythrocyte Sedimentation Rate 18 mm/hr (0-15)
[2021-11-08 14:29] LABS: Alanine Aminotransferase 20 U/L (0-33); Albumin Level 4.6 g/dL (3.5-5.2); Alkaline Phosphatase 105 IU/L (35-105); Blood Urea Nitrogen 19 mg/dL (8-23); Calcium 9.9 mg/dL (8.5-10.5); Carbon Dioxide 24 mmol/L (22-29); Chloride 106 mmol/L (98-107); Globulin 2.8 g/dL (1.3-4.6); Glomerular Filtration Rate 71.8 mL/min (90-130); Glucose 112 mg/dL (65-115); Osmolality Calculated 297 mOsm/kg (285-295); Sodium 142 mmol/L (136-145); Total Bilirubin 0.2 mg/dL (0.15-1.2); Total Protein 7.4 g/dL (6.6-8.7)
[2021-11-08 14:31] LABS: Anion Gap 16.4 (5-19); Potassium 4.4 mmol/L (3.5-5.1)
[2021-11-08 14:32] LABS: Aspartate Amino Transferase 24 U/L (0-32); Lactate Dehydrogenase 294 U/L (135-214)
--- NOTE | 2021-11-11 14:26 | ONC FU_ITS ---
Dr. Gonzalez Patient Follow-Up Note Patient: Danny Min Unit #: [id number]: 1955 Dicatated By: Werner Gonzalez M.D.Date of Visit:Nov 08, 2021 Onc Med Follow-up/Prog Note Chief Complaint: Pancytopenia. 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 She had become acutely ill requiring hospital admission on 11/12/2017. Her symptoms included fever as high as 104???, high blood pressure, and tachycardia. She was admitted with a presumptive diagnosis of urinary tract infection and sepsis. Her urine culture subsequently did grow Escherichia coli, but blood culture was negative. Her initial CBC showed borderline hemoglobin at 12.7 g with white blood cell count low at 2100 and platelet count low at 67,000. The absolute neutrophil count was 1700. The red cell indices were in the low-normal range. The alkaline phosphatase was minimally elevated 119/117 IU/L. The other liver enzymes and the bilirubin were normal. She was discharged on 11/15/2017 to continue antibiotic coverage with Levaquin 750 mg daily. Her CBC at discharge showed hemoglobin 10.5 g, white blood cell count 4700, and platelet count 72,000. On 11/24/2017 she was back in the emergency room with fever and diffuse maculopapular skin eruption. This was ultimately determined to be a hypersensitivity reaction to Dexilant. However, her repeat laboratory studies on 11/25/2017 showed hemoglobin 10.2 g with white blood cell count back down to 1800 and platelet count 54,000. The absolute neutrophil count was 1200. Her B12 level was normal at 533 pg/mL. LDH was mildly elevated at 259/246 U/L. Serum iron studies show transferrin saturation slightly low at 19.9%. The ferritin was elevated at 423 ng/mL. Sedimentation rate was significantly elevated at 86 mm/hour with CRP mildly elevated at 1.810 mg/dL. The protein electrophoresis had a normal pattern. Blood cultures were again negative. Stool FIT was negative. She was discharged home on Protonix, which she stopped taking, as it was causing abdominal cramping and diarrhea. In the meantime, on 11/29/2017 she underwent outpatient bone marrow aspiration/biopsy. The preliminary findings include hypercellularity, estimated at 80-85%, but with no evidence of infiltrative process and just limited megakaryocyte dyspoiesis. Lymphoid aggregates were present and appeared to be benign. Iron stores were 2+/4+. There were no ring sideroblasts noted. The flow cytometry showed no aberrant myeloid or lymphoid populations. The FISH panel for MDS was unrevealing, and the standard chromosome analysis was normal. Overall, the findings were nonspecific. I had seen her initially on 12/01/2017. At that point her symptoms were improving, and her blood counts also appeared to be recovering. Her platelet count had increased to 121,000 with white blood cell count 3200 and hemoglobin 12.9 g. Given the bone marrow findings, I had recommended observation/expectant management. As of her follow-up visit on 12/29/2017 her platelet count had dropped back down to 23,000 with white blood cell count decreased to 2300 and hemoglobin stable at 11.8 g. During subsequent follow-up, there was further decrease in the platelet count to 10,000 with WBC 1500 and Hg 12.2 g. She was then treated with IVIG 1 gm/kg by IV infusion on 01/09 and 01/10/2018. She had some headache and some anxiety with the IVIG, but she otherwise tolerated it well. As of 01/15/2018 her platelet had increased to 66,000 with WBC 2600 and hemoglobin 11.5 gm. Her sedimentation rate remained significantly elevated at 74 mm/hour. She was then followed on observation. As of 02/07/2018 her platelet count had dropped back down to 8000. Her white count at that point had decreased to 1800 with absolute neutrophil count 1000. The hemoglobin was down slightly, to 10.7 g. She was then retreated with IVIG 1 g/kg but IV infusion daily for 2 days, completed on 02/10/2018. Her repeat CBC on 02/12/2018 showed hemoglobin 10.0 g with white blood cell count increased to 4700 and platelet count back up to 54,000. She then started prednisone at 20 mg 3 times a day. As of her follow-up visit on 02/23/2018 her platelet count had increased to 119,000 with hemoglobin 11.6 g and white blood cell count 8700. Her sedimentation rate was still significantly elevated at 76 mm/hour. Her prednisone dosage was reduced to 20 mg twice a day. She was then seen again on 03/27/2018. Her blood counts were basically stable, and she appeared stable clinically. Her prednisone dosage was reduced to 20 mg daily. As a precaution, I did have her further evaluated with CT scans of chest, abdomen, and pelvis. The previously described iliac chain lymphadenopathy had resolved. There were no other significant findings. Had a follow-up visit on 05/03/2018 her blood counts have remained stable and she appeared stable clinically. Her prednisone dosage was reduced to 10 mg daily. In July it was further reduced to 5 mg daily. At her follow-up visit on 11/06/2018 her blood counts appeared stable. Over the next 4 weeks the prednisone was further tapered and discontinued. As of her follow-up visit in January 2019 her blood counts appeared stable. She was having more joint pain, and she had developed some mild swelling. She also had been treated for superficial phlebitis of her right leg. At that point she had started meloxicam for the joint pain, and she was given a prescription for furosemide for the swelling. She continued expectant management for the pancytopenia. Her other medical illnesses include dyslipidemia, hypothyroidism, degenerative arthritis/degenerative disease of the spine, chronic migraine, and anxiety/depression. Her only surgery was a partial hysterectomy in 1989. She is a nonsmoker. INTERIM HISTORY: She is seen for a follow-up visit. She has been feeling pretty good generally, though some days she is dragging and she does has to rest. Her ECOG score is 1. She has good appetite. She has not had fever. She does have some hot flashes and sweating. She has sinus drainage. She has not had sore mouth or throat. She does not complain of cough, and she has not been having shortness of breath or chest pain. She currently has no GI or complaints. She has some pain/stiffness in her left index finger. She has no other joint or bone pain. She does not complain of headache or dizziness, and she has no focal neurologic symptoms. Medications: B-12 1 Tablet (of 1000 mcg) Oral daily, BuPROPion HCl ER (XL) 1 Tablet (of 300 mg) Tablet SR 24 HR Oral daily, Cetirizine HCl 1 Tablet (of 10 mg) Oral daily, Cholecalciferol 2 Tablet (of 5000 Units) Oral q 7 days, Cranberry Extract 1 Capsule (of 200 mg) Oral daily, Famotidine 1 Tablet (of 40 mg) Oral daily, Ferrous Sulfate (27 mg) Tablet Oral daily, Gabapentin 2 Capsule (of 300 mg) Oral b.i.d., Levothyroxine Sodium 1 Tablet (of 88 mcg) Oral daily, Magnesium 1 Tablet (of 250 mg) Oral daily, Meloxicam 1 Tablet (of 15 mg) Oral daily, Osteo Bi-Flex Regular Strength 1 Tablet (of 250-200 mg) Oral daily, Probiotic 1 Capsule Oral daily, Simvastatin 1 Tablet (of 20 mg) Oral daily, Tramadol-Acetaminophen 1 Tablet (of 37.5-325 mg) Oral b.i.d. PRN Allergies: Bacitracin, Celecoxib, Clarithromycin, Clindamycin HCl, Excedrin Back & Body, Neomycin Sulfate, and Polymyxin B Sulfate. Vital Signs: Performed on Nov 08, 2021 15:10 Height - 65.00 in BP - 150/77 mm(hg) (HIGH) Performed on Nov 08, 2021 15:09 Height - 65.00 in Weight - 174.0 lbs (LOW) BSA - 1.86 sq.m BMI - 28.96 Temperature - 97.1 F (LOW) Pulse - 81 /min Respiration - 18 /min BP - 174/77 mm(hg) (HIGH) O2 Sat - 97 % Pain - 0 Fatigue - 1 Physical Examination: Constitutional - She looks good generally, Eyes - Sclerae nonicteric. Conjunctivae clear, ENMT - No lesions in the oral cavity, Hematologic/Lymphatic - No cervical, clavicular, or axillary adenopathy, Respiratory - Lungs are clear with good air movement bilaterally, Cardiovascular - Heart rhythm is regular. There is no murmur, gallop, or rub noted, Abdomen - Soft. Liver and spleen are not enlarged. There is no abdominal mass or ascites noted and there is no inguinal adenopathy, Extremities - No edema, Neurologic - No focal neurologic deficits noted. Lab/Imaging: Test performed on Nov 08, 2021 13:57 LDH (Total) 294 U/L Sodium 142 mmol/L Potassium 4.4 mmol/L Chloride 106 mmol/L CO2 24 mmol/L Anion Gap 16.4 BUN 19 mg/dL Creatinine 0.8 mg/dL Cr Clearance (Est) 86.19 mL/min eGFR 71.8 mL/min Glucose 112 mg/dL Osmolality - Calculated 297 mOsm/kg Calcium 9.9 mg/dL Protein, Total 7.4 g/dL Albumin 4.6 g/dL Globulin 2.8 g/dL Bilirubin, Total 0.2 mg/dL ALT (SGPT) 20 U/L AST (SGOT) 24 U/L Alkaline Phosphatase 105 IU/L ESR (Sed Rate) 18 mm/hr WBC 3.2 10 3/uL RBC 4.41 10 6/uL HGB 12.9 g/dL HCT 38.6 % MCV 87.5 fl MCH 29.3 pg MCHC 33.4 g/dL RDW 13.4 % Platelet Count 136 10 3/cmm MPV 11.9 fL Neutrophils 2.19 10 3/uL Lymphocytes 0.5 10 3/uL Monocytes 0.4 10 3/uL Eosinophils 0.1 10 3/uL Basophils 0.0 10 3/uL Neutrophil % 68.5 % Lymphocyte % 15.9 % Monocyte % 12.2 % Eosinophil % 2.5 % Basophils % 0.6 % NRBC % 0 % Problem List: 1. Patient was found in October 2017 to have mild to moderately severe pancytopenia. Etiology was uncertain. Initially it appeared to be most likely postinfectious, but ultimately it did appear to be most likely autoimmune. 2. Dyslipidemia. 3. Hypothyroidism. 4. Degenerative arthritis/degenerative disease of the spine. 5. Seasonal allergies. 6. She has a history of chronic migraine. 7. She has chronic anxiety/depression. Problems Addressed with this Encounter and Plan: Patient with mild to moderately severe pancytopenia, first discovered in October 2017 during a hospital admission for Escherichia coli urinary tract infection with associated sepsis. It was initially suspected to be postinfectious, but ultimately it appeared more likely to be autoimmune. Bone marrow aspiration/biopsy on 11/29/2017 showed hypercellularity at 80-85%. There were no other diagnostic findings. As of 01/08/2018 her platelet count had declined to 10,000. Her hemoglobin was stable at 12.2 g, but her white blood cell count had decreased to 1500. Given the predominant thrombocytopenia in the setting of nonspecific bone marrow findings, I had suspected that at least some component of it was immune mediated. She was then given empiric treatment with IVIG, 75 g by IV infusion on 01/09 and 01/10/2018. She did show some response with her platelet count increasing to 66,000 on 01/15/2018. Her hemoglobin at that point was stable at 11.7 g. Her white blood cell count had increased slightly, to 2300. Her sedimentation rate remained moderately elevated at 74 mm/hour. As of 02/07/2018 her platelet count had dropped back down to 8000. Her hemoglobin was down slightly to 10.7 g. Her white blood cell count had decreased to 1800 with absolute neutrophil count 1000. She was retreated with IVIG, 1 g/kg by IV infusion daily for 2 days, completed on 02/10/2018. She again showed a modest response. As of 02/12/2018 she started steroid therapy with prednisone 20 mg 3 times a day. She had a very significant response to the prednisone, though during follow-up she continued to have mild thrombocytopenia. Her sedimentation rate had initially remained significantly elevated, but it did gradually come down. She was then able to gradually taper down her steroid dosage. At her followup visit on 11/06/2018 she appeared stable clinically. Over the next 4 weeks her prednisone was tapered off and discontinued. During subsequent follow-up she continued to have some fatigue and some joint pain. Her blood counts, though, remained stable with mild to moderately severe leukopenia and with low normal hemoglobin/hematocrit levels and platelet counts. At this point she still has some mild fatigue, but overall she is doing well clinically, and her blood counts remain stable. She will continue on expectant management. I will see her again in 6 months. Signed By: Werner Gonzalez M.D. <<Signature on File>>
== END 2021-11-08 12:52 | disposition home or self-care (01) ==
PROVIDERS: PCP Internal Medicine; Visit Provider Internal Medicine Medical Oncology
DX: D61.818 Other pancytopenia (principal); D69.6 Thrombocytopenia, unspecified; E78.5 Hyperlipidemia, unspecified; E03.9 Hypothyroidism, unspecified; M47.9 Spondylosis, unspecified; G43.909 Migraine, unspecified, not intractable, without status migrainosus; F41.9 Anxiety disorder, unspecified; F32.A Depression, unspecified; Z79.899 Other long term (current) drug therapy
CPT/HCPCS: 36415; 80053; 83615; 85025; 85651; 99214

== ENCOUNTER 2022-03-14 07:30 | Outpatient (CLI) | payer MEDICARE, BC, SELFPAY ==
--- NOTE | 2022-03-14 07:39 | MM_ITS ---
WS: [id number] BILATERAL SCREENING DIGITAL BREAST TOMOSYNTHESIS MAMMOGRAM WITH CAD HISTORY: SCREENING COMPARISON: 03/11/2021 and 02/12/2020 Bilateral CC and MLO views with tomosynthesis and synthetic mammography submitted. Computer aided det ection analyzed. Breast composition: There are scattered areas of fibroglandular density. No suspicious masses, microc alcifications or architectural distortion. MM/[place] [id number] IMPRESSION: BI-RADS: 1-Negative FOLLOW UP: 1 Year Follow-up
== END 2022-03-14 07:31 | disposition home or self-care (01) ==
LOC: RAD 07:32
PROVIDERS: PCP Internal Medicine; Visit Provider Internal Medicine
DX: Z12.31 Encounter for screening mammogram for malignant neoplasm of breast (principal)
CPT/HCPCS: 77063; 77067

== ENCOUNTER → 2022-09-12 12:32 | Outpatient (BNVA) | payer MEDICARE, BC, SELFPAY | PROVIDERS: PCP Internal Medicine; Referring Provider Internal Medicine; Visit Provider Specialist | DX: S49.92XA Unspecified injury of left shoulder and upper arm, initial encounter (principal); X50.0XXA Overexertion from strenuous movement or load, initial encounter | CPT/HCPCS: 99204 ==

== ENCOUNTER 2022-10-20 09:15 | Outpatient (CLI) | payer MEDICARE, BC, SELFPAY ==
--- NOTE | 2022-10-20 09:30 | MR_ITS ---
WS: [id number] MRI LEFT SHOULDER HISTORY: left shoulder pain COMPARISON: 09/05/2022 TECHNIQUE: Multiplanar sequences of the shoulder joint are submitted. Moderate AC joint arthritis. 7 x 4 mm osteophytes in the distal clavicle encroaches upon the supraspi natus. Cystic changes in the acromion. There is mild subacromial impingement. Very small amount of woodruff bacromial fluid. No os acromion. Normal position of the biceps tendon. Very slight high riding of the humeral head. Mild narrowing of the glenohumeral joint. Oblique tear e xtends through the distal supraspinatus tendon with extension to the articular surface. There is meggan tional mild supraspinatus tendinopathy. No additional rotator cuff tear is identified. There is addit ional edema within the anterior most supraspinatus muscle where there is encroachment and impingement by AC joint arthritis. No labral tear. MR/MR shoulder LT wo con* [id number] IMPRESSION: 1. Oblique tear distal supraspinatus tendon extends to the articular surface. 2. Edema within the distal supraspinatus muscle at the level of the AC joint. Due to encroachment and impingement by AC joint arthritis. 3. Moderate AC joint arthritis.
== END 2022-10-20 09:16 | disposition home or self-care (01) ==
LOC: RAD 09:20
PROVIDERS: PCP Internal Medicine; Visit Provider Specialist
DX: M75.102 Unspecified rotator cuff tear or rupture of left shoulder, not specified as traumatic (principal); R60.0 Localized edema; M13.812 Other specified arthritis, left shoulder
CPT/HCPCS: 73221

== ENCOUNTER → 2022-10-25 08:51 | Outpatient (BNVA) | payer MEDICARE, BC, SELFPAY | PROVIDERS: PCP Internal Medicine; Visit Provider Nurse Practitioner Family | DX: M75.102 Unspecified rotator cuff tear or rupture of left shoulder, not specified as traumatic (principal); S46.002A Unspecified injury of muscle(s) and tendon(s) of the rotator cuff of left shoulder, initial encounter; X58.XXXA Exposure to other specified factors, initial encounter | CPT/HCPCS: 99214 ==

== ENCOUNTER → 2022-11-23 09:53 | Outpatient (BNVA) | payer MEDICARE, BC, SELFPAY | PROVIDERS: PCP Internal Medicine; Visit Provider Specialist | DX: M75.102 Unspecified rotator cuff tear or rupture of left shoulder, not specified as traumatic (principal); M25.812 Other specified joint disorders, left shoulder; M19.012 Primary osteoarthritis, left shoulder | CPT/HCPCS: 99214 ==

== ENCOUNTER 2022-12-06 14:17 | Oncology outpatient (recurring) (ONCR) | payer MEDICARE, BC, SELFPAY | END 2022-12-25 23:59 | disposition home or self-care (01) | PROVIDERS: PCP Internal Medicine; Visit Provider Nurse Practitioner Family | DX: D61.818 Other pancytopenia (principal); R53.83 Other fatigue; Z78.0 Asymptomatic menopausal state | CPT/HCPCS: 99213 ==

== ENCOUNTER 2022-12-09 07:51 | Day surgery (SDC) | payer MEDICARE, BC, SELFPAY ==
[2022-12-08 10:32] VITALS: BMI 28.1
[2022-12-09] VITALS (11 sets, daily range): BP systolic 171–208; BP diastolic 76–102; PULSE 64–92; RESP 12–20; TEMP 36.1–36.6; O2SAT 95–100
--- NOTE | 2022-12-09 08:15 | W.PM.OPSUD ---
Surgery/Procedure H&P Update DATE OF PROCEDURE: December 09, 2022 DATE H&P PERFORMED: 11/23/22 H&P UPDATE INFORMATION: I have reviewed H&P completed within last 30 days, I have examined patient prior to procedure, No changes to prior documentation and H&P is in [facility] [place] EMR on date indicated PREOP DIAGNOSIS: Left shoulder rotator cuff tear and impingement, AC joint DJD PRIMARY INDICATION FOR PROCEDURE: MRI noncontrast of the left shoulder was obtained on October 20, 2022.? This was ordered by me and interpreted by Dr. Kenyetta Booker.? Findings on this MRI include an oblique tear of the distal supraspinatus tendon which extended to the articular surface.? This extended through the distal supraspinatus tendon, and it was associated with mild supraspinatus tendinopathy as well.? There is no additional rotator cuff identified.? There was encroachment upon the supraspinatus muscle by the acromioclavicular joint osteoarthritis, and the humeral head was noted to be very slightly high riding with mild narrowing of the joint.? Biceps tendon was noted to be in normal position, and there was no labral tear. PLANNED PROCEDURE: Operation Date: 12/09/22 10:20 Proposed Procedures p Left shoulder OPEN rotator cuff repair with distal clavicle resection and acromioplasty. [id number],M75.102 S44.002A(Left) - Rosa Mckeon MD s Distal Clavicle Resection(Left) - Rosa Mckeon MD s Acromioplasty(Left) - Rosa Mckeon MD Related Problem List Diagnoses (1) Supraspinatus tendon tear: Qualifiers: Laterality: left Qualified Code(s): M75.102 - Unspecified rotator cuff tear or rupture of left shoulder, not specified as traumatic (2) Impingement of left shoulder: (3) Osteoarthritis of left acromioclavicular joint:
[2022-12-09] MEDS: acetaminophen 1,000 MG/100 ML PIGGYBACK 400 MG IV (08:24)
[2022-12-09] MEDS: sodium chloride 0.9% 1,000 ML 30 ML IV (08:24)
[2022-12-09] MEDS: scopolamine 1.5 Patch 1 PATCH TRANSDERMA (08:41)
[2022-12-09] MEDS: midazolam 1 mg/mL INJ 2 mL 2 MG IVP (08:41)
--- NOTE | 2022-12-09 09:26 | ANES.PREANE2 ---
Pre-Anesthetic Assessment Height/Weight: Height 1.65 m Weight 76.657 kg Temp Pulse Resp BP Pulse Ox O2 Del Method 97.8 F 92 18 174/76 95 Room Air 12/09/22 08:00 12/09/22 08:00 12/09/22 08:00 12/09/22 08:00 12/09/22 08:00 12/09/22 08:19 Preop Diagnosis: Left shoulder rotator cuff tear and impingement, AC joint DJD Operation Date: 12/09/22 10:20 Proposed Procedures p Left shoulder OPEN rotator cuff repair with distal clavicle resection and acromioplasty. [id number],M75.102 S44.002A(Left) - Rosa Mckeon MD s Distal Clavicle Resection(Left) - Rosa Mckeon MD s Acromioplasty(Left) - Rosa Mckeon MD Familial anesthetic complications: none Was Beta Miley taken within 24 hours: N/A Was Clonidine taken within 24 hours: N/A Last intake: Intake Last Liquid Date 12/08/22 Last Liquid Time 23:59 Last Solid Date 12/08/22 Last Solid Time 23:59 Social No alcohol and No tobacco Exam alert, oriented x 3, clear to auscultation bilaterally and regular rate & rhythm Airway Submandibular: within normal limits Cervical ROM: within normal limits Mallampati: Class II Dentition: full CV/HEM Anemia Metabolic Hyperlipidemia and Thyroid Disease Musc/skel Osteoarthritis/DJD Neuropsych Anxiety and Depression Anesthetic Plan ASA status: 2 Anesthesia: General and Regional (specify below) (left interscalene blk) Medications/Allergies Home Medications Medication Instructions Recorded Confirmed Last Taken Type bupropion HCl 300 mg 24 hr tablet, 300 mg PO QAM 09/12/22 12/08/22 12/08/22 History extended release cetirizine 10 mg capsule (All Day 10 mg PO DAILY PRN Allergy Symptoms 09/12/22 12/08/22 12/08/22 History Allergy (cetirizine)) famotidine 20 mg tablet 20 mg PO DAILY 09/12/22 12/08/22 12/08/22 History gabapentin 300 mg capsule 300 mg PO BID 09/12/22 12/08/22 12/08/22 History glucosamine OOy-P9-Snmppchee 1 tab PO DAILY 09/12/22 12/08/22 12/08/22 History juan 1,500 mg-400 unit-100 mg tablet (Osteo Bi-Flex (5-Loxin)) levothyroxine 88 mcg tablet 88 mcg PO DAILY 09/12/22 12/08/22 12/08/22 History loratadine 10 mg tablet (Claritin) 10 mg PO DAILY 09/12/22 12/08/22 12/08/22 History meloxicam 15 mg tablet 15 mg PO DAILY 09/12/22 12/08/22 12/07/22 History simvastatin 20 mg tablet 20 mg PO DAILY 09/12/22 12/08/22 12/08/22 History cholecalciferol (vitamin D3) 25 25 mcg PO DAILY 11/23/22 12/08/22 12/08/22 History mcg (1,000 unit) capsule cranberry fruit concentrate 250 mg 250 mg PO DAILY 11/23/22 12/08/22 12/08/22 History chewable tablet (Azo Cranberry) lactobacillus combination no.9 4 4,000 mmu cells PO DAILY 11/23/22 12/08/22 12/07/22 History billion cell capsule (Adult 50 Plus Probiotic) magnesium 250 mg tablet 250 mg PO DAILY 11/23/22 12/08/22 12/08/22 History multivitamin 1 tab PO DAILY 11/23/22 12/08/22 12/08/22 History coenzyme Q10 10 mg capsule (Co 10 mg PO TID 12/06/22 12/08/22 12/08/22 History Q-10) ferrous sulfate 325 mg (65 mg 325 mg PO DAILY 12/06/22 12/08/22 12/06/22 History iron) tablet prevagen .Route 12/06/22 12/08/22 History Allergies Allergy/AdvReac Type Severity Reaction Status Date / Time bacitracin Allergy Mild rash Verified 12/09/22 08:06 [From Neosporin (cmz-[id number]-agcen)] ibuprofen Allergy Mild rash Verified 12/09/22 08:06 neomycin Allergy Mild rash Verified 12/09/22 08:06 [From Neosporin (bsi-fuu-lonfr)] polymyxin B Allergy Mild rash Verified 12/09/22 08:06 [From Neosporin (tfc-boo-klvbh)] buspirone Allergy Intermediate ADR-Agitate Uncoded 12/06/22 15:37 d celebrex Allergy Intermediate rash Uncoded 12/06/22 15:37 citalopram Allergy Intermediate ADR-Insomni Uncoded 12/06/22 15:37 a pantoprozole Allergy Intermediate ADR-Diarrhe Uncoded 12/06/22 15:37 a excederin Allergy Mild rash Uncoded 12/06/22 15:37 clindamycin Allergy ADR-Itching Uncoded 12/06/22 15:37 clobetasol Allergy rash Uncoded 12/06/22 15:37 monelukast Allergy ADR-Agitate Uncoded 12/06/22 15:37 d pseudoephedrine Allergy ADR-Dry Uncoded 12/06/22 15:37 Mucus Membranes Current Medications Generic Name Dose Route Start Last Admin Trade Name Freq PRN Reason Stop Dose Admin Sodium Chloride 1,000 mls @ 30 mls/hr 12/09/22 08:00 12/09/22 08:24 Sodium Chloride 0.9% IV 12/10/22 07:59 30 mls/hr .Q24H EFREM Administration Midazolam HCl 2 mg 12/09/22 08:00 12/09/22 08:41 Midazolam 1 Mg/Ml Inj 2 Ml IVP 2 mg ONCE PRN Administration Preop Anxiety PFSH Anesthesia Family History Other Dementia Social History Smoking and tobacco status: never smoked Second hand smoke exposure: No Smoking risk assessment/counseling performed?: No Alcohol intake: never Desire information about alcohol rehabilitation?: No Counseling given: No Desire information about substance/drug rehabilitation?: No Counseling given: No Adopted: No Caregiver/support person: Yes Lives independently: No Household members: spouse Housing: House Marital status: Number of children: 2 Number of grandchildren: 0 Highest education level completed: High School Graduate service: No Current occupational status: retired Current occupational exposures/hazards: No Pets and animals: Yes Sexually active: Yes Current gender identity: Female Special wagner needs: No Agree to transfusion: Yes Data Anesthesia Cardiac Studies: No Data to Display Anesthesia Procedures Nerve Block Nerve Block 1: Main Anesthesia: general anesthesia Time Out Performed: Yes Consent: requested by attending/covering physician, from patient, risks and benefits reviewed and patient agrees to proceed Nerve block location: interscalene (left) Anesthesia monitors applied: pulse oximetry, EKG, BP cuff and oxygen Nerve block position: semi sitting Anesthetic Used: ropivicaine 0.5% Amount of anesthesia used (mL): 30 Ultrasound used to: recognize landmarks and visualize and ID brachial plexus Nerve Stimulator Used?: No Interscalene/Femoral BLK: 2 stimuplex 22 g needle used for position and inplane approach Injection: neg aspiration of heme Patient Tolerated Procedure: well Complications: none
[2022-12-09] MEDS: ceFAZolin 2,000 MG in sodium chloride 0.9% (plus) 50 ML 100 MG IV (09:48)
[2022-12-09] MEDS: ceFAZolin 1,000 mg SDV 1000 MG IRRIGATION (10:46)
[2022-12-09] MEDS: vancomycin 1,000 MG SDV 1000 MG XX (11:12)
--- NOTE | 2022-12-09 11:39 | P.OP_ITS ---
Operative Report Date of procedure: December 09, 2022 Pre-op diagnosis: Left shoulder rotator cuff tear with impingement and acromioclavicular joint degenerative osteoarthritis Post-op diagnosis: Left shoulder rotator cuff tear with impingement and acromioclavicular joint degenerative osteoarthritis Post-op findings: Significant impingement from clavicle and acromion. Oblique rotator cuff tear within the supraspinatus as described per MRI Procedure done: Left rotator cuff repair with acromioplasty and distal clavicle resection Specimens removed/disposition: Bone, disposed of Surgeon: Rosa Mckeon Rn Field Case Manager[facility] Anesthesia: General (Intubated, ASA 2) Estimated blood loss (mL): 10 IV fluids (mL): 700 Urine output (mL): 0 (No Stringer) Complications: None Findings: Significant impingement from the distal clavicle. Thinned acromion with significant impingement. Condition: stable Disposition: PACU (Then return to same-day surgery for discharge to home.) Brief History: This 67-year-old woman presented initially with complaints of left shoulder pain. MRI confirmed impingement from both the distal clavicle and the acromion. Biceps tendon was noted to be normal. She did have an oblique supraspinatus tendon tear per MRI as well. After discussion of the MRI, she wished to proceed with acromioplasty, distal clavicle resection, and rotator cuff repair if appropriate. Risks and complications were discussed with her in the office preoperatively. Consents were signed and questions were answered. She was seen preoperatively today with her and opportunity was again given to further discuss the surgery. Patient wished to proceed with surgical intervention, and her was in agreement. Procedure: The patient was brought to the operating theater and underwent general intubated anesthesia, ASA 2. The patient was placed in a beachchair position and subsequently the left upper extremity was prepped and draped in the usual fashion utilizing DuraPrep. The arm was draped free. A surgical pause was performed prior to commencement of the surgical procedure. At the time of the surgical pause, we confirmed the site and side of surgery as well as administration of appropriate preoperative antibiotics Ancef 2 g. MRI was also reviewed at that time. Following the surgical pause, an incision was made at approximately the level of the acromioclavicular joint extending across the anterolateral corner of the acromion and distally as necessary. Care was taken to avoid injury to the axillary nerve by limiting the distal extent of the incision. Dissection continued through skin and soft tissues using a scalpel. Hemostasis was obtained using electrocautery. Soft tissues were elevated off the acromion. An acromioplasty was then accomplished using a combination of a saw and a power rasp. With this, we were able to remove compression caused by the acromion. Care was taken to avoid too much resection of the acromion as it was quite thinned. It was filed smooth following resection. The rotator cuff was then evaluated to look for tears. As noted in the MRI, there was a tear in the supraspinatus tendon. The rotator cuff tear was evaluated. The edges were freshened using a scalpel. The tear was noted to be oblique in nature, and it did not involve insertion. Repair was accomplished using 0 Ethibond in an interrupted fashion. The tear orientation was noted to be oblique and vertical without involvement of the insertion of the tendon. After the rotator cuff had been thus addressed, the shoulder was placed through further range of motion to assure there was no further evidence of rotator cuff tear. The acromioclavicular joint was exposed. A saw was then used to resect the distal clavicle without difficulty. The undersurface of the clavicle was palpated, and there was significant enlargement of the distal clavicle which caused significant degree of impingement. Therefore, the saw and rasp were used on the undersurface of the clavicle as well. A power rasp was used to further smooth the area. When this was felt to be adequately resected, the wound was irrigated. Attention was then directed to closure. The wound was irrigated and closure was accomplished with 0 Vicryl in the capsular tissues overlying the acromioclavicular joint area as well as over the acromion and down into the deltoid muscle. 2-0 Monocryl was used to close the subcutaneous tissues followed by 3-0 Monocryl subcuticular closure. This was followed by Lindsay Pavon. The patient was placed in a slingshot style sling and was returned to the recovery room in satisfactory condition. The patient will be discharged to home to follow-up with me in the office. There were no complications and no specimens. Related Problem List Diagnoses (1) Supraspinatus tendon tear: (2) Impingement of left shoulder: (3) Osteoarthritis of left acromioclavicular joint:
[2022-12-09] MEDS: HYDROcodone-acetaminophen 5-325 mg Tablet 1 TAB PO (12:36)
--- NOTE | 2022-12-09 12:46 | PC.NURSE ---
Dr. Morris notified of pts BP 203/89. Orders recieved for hydralazine and lopressor. Will continue to monitor and reassess
[2022-12-09] MEDS: hyDRALAzine 20 mg/mL INJ 1 mL 10 MG IVP (12:52)
[2022-12-09] MEDS: labetalol 5 mg/mL SDV 20mL 100 MG (12:56)
--- NOTE | 2022-12-09 13:44 | PC.NURSE ---
Post medication administration and pain pill pts bp 178/80. Dr. Morris ok'd to dc at this time. PT has no complaints of pain, dressing cdi. Verbalized understanding of all discharge orders with no further questions.
--- NOTE | 2022-12-09 13:56 | ANE.PACU2 ---
Inpatient post-anesthesia follow up: Airway intact: Yes Vital signs: Temperature 97.0 F Pulse Rate 66 Respiratory Rate 18 Blood Pressure 178/80 Pulse Oximetry 100 Oxygen Delivery Me thod Room Air Oxygen Flow Rate Fraction of Inspir ed Oxygen Hydration adequate: Yes Nausea and vomiting: No Pain level: 1 Mental status: Baseline
== END 2022-12-09 13:55 | disposition home or self-care (01) ==
PROVIDERS: PCP Internal Medicine; Visit Provider Specialist
PROC: (CPT 23120; principal; 2022-12-09 10:10)
PROC: (CPT 23120; 2022-12-09 10:10)
PROC: (CPT 23130; 2022-12-09 10:10)
DX: M75.102 Unspecified rotator cuff tear or rupture of left shoulder, not specified as traumatic (principal); M75.42 Impingement syndrome of left shoulder; M19.012 Primary osteoarthritis, left shoulder; E78.5 Hyperlipidemia, unspecified; E03.9 Hypothyroidism, unspecified; M19.90 Unspecified osteoarthritis, unspecified site; F41.9 Anxiety disorder, unspecified; F32.A Depression, unspecified
CPT/HCPCS: 23120; 23420; J0131; J0360; J0690; J1100; J2250; J2370; J2405; J2704; J2795; J3010; J3370; J3490; J7030

== ENCOUNTER → 2022-12-23 09:24 | Outpatient (BNVA) | payer MEDICARE, BC, SELFPAY | PROVIDERS: PCP Internal Medicine; Visit Provider Nurse Practitioner Family | DX: Z98.890 Other specified postprocedural states (principal) | CPT/HCPCS: 99024 ==

== ENCOUNTER 2023-01-30 09:21 | Outpatient (RCR) | payer MEDICARE, BC, SELFPAY | END 2023-02-24 23:59 | disposition home or self-care (01) | LOC: SPT 09:21 | PROVIDERS: PCP Internal Medicine; Visit Provider Nurse Practitioner Family | DX: Z47.89 Encounter for other orthopedic aftercare (principal) | CPT/HCPCS: 97110; 97161 ==

== ENCOUNTER → 2023-02-03 08:59 | Outpatient (BNVA) | payer MEDICARE, BC, SELFPAY | PROVIDERS: PCP Internal Medicine; Visit Provider Nurse Practitioner Family | DX: Z98.890 Other specified postprocedural states (principal) | CPT/HCPCS: 99024; 99212 ==

== ENCOUNTER 2023-02-25 06:00 | Outpatient (RCR) | payer MEDICARE, BC, SELFPAY | END 2023-03-16 23:59 | disposition home or self-care (01) | LOC: SPT 06:00 | PROVIDERS: PCP Internal Medicine; Visit Provider Nurse Practitioner Family | DX: Z47.89 Encounter for other orthopedic aftercare (principal) | CPT/HCPCS: 97110 ==

== ENCOUNTER 2023-03-10 14:55 | Outpatient (CLI) | payer MEDICARE, BC, SELFPAY ==
--- NOTE | 2023-03-10 15:00 | XR_ITS ---
WS: [id number] SCREENING DEXA SCAN Room 77 CLINICAL INFORMATION: screening for osteoporosis COMPARISON: None. FINDINGS: The L1-L4 bone mineral density measures 1.305 g/cm2. This corresponds to a T score score of 1.0 and Z score of 2.2. Left femoral neck bone mineral density measures 0.941 g/cm2. This corresponds to a T score of -0.5 an d Z score of 0.5. Right femoral neck bone mineral density measures 0.897 g/cm2. This corresponds to a T score -0.9of an d Z score of 0.1. Mean femoral neck bone mineral density measures 0.919 g/cm2. This corresponds to a T score of -0.7 an d Z score of 0.3. XR/XR DEXA axial skeleton* 62000 IMPRESSION: Normal bone mineralization lumbar spine. Normal bone mineralization femoral nec ks. Patient's FRAX calculated 10 year probability for major osteoporotic fracture i s 9.3 % and osteoporotic hip fracture is 1.1%.
== END 2023-03-10 14:56 | disposition home or self-care (01) ==
PROVIDERS: PCP Internal Medicine; Visit Provider Nurse Practitioner Family
DX: Z13.820 Encounter for screening for osteoporosis (principal); Z78.0 Asymptomatic menopausal state
CPT/HCPCS: 77080

== ENCOUNTER → 2023-03-17 08:50 | Outpatient (BNVA) | payer MEDICARE, BC, SELFPAY | PROVIDERS: PCP Internal Medicine; Visit Provider Nurse Practitioner Family | DX: Z98.890 Other specified postprocedural states (principal) | CPT/HCPCS: 99213 ==

== ENCOUNTER 2023-03-31 08:21 | Outpatient (CLI) | payer MEDICARE, BC, SELFPAY ==
--- NOTE | 2023-03-31 08:37 | MM_ITS ---
WS: [id number] Bilateral screening 3D tomosynthesis digital mammogram, 03/31/2023 Clinical Data: SCREENING Comparison: 03/14/2022, 03/11/2021, 02/12/2020, 10/19/2018, 10/09/2017, 09/19/2016, 09/16/2015, 09/15/2014, , 08/27/2012, 08/11/2011, 07/22/2011, 07/15/2010, 11 03/14/2009, 06/09/2008. Findings: The breast parenchymal pattern shows glandular tissue. No spiculated masses or clustered calcificatio ns are seen. There are no secondary signs of carcinoma. There is a mole marker on the left breast. MM/[place] [id number] Impression: 1. Negative bilateral mammogram unchanged. 2. Recommend annual screening mammograms. BIRADS: 1-Negative FOLLOW UP: 1 Year Follow-up The CAD freight checker was used.
== END 2023-03-31 08:22 | disposition home or self-care (01) ==
LOC: RAD 08:24 → MOBLMAM 08:33
PROVIDERS: PCP Internal Medicine; Referring Provider Internal Medicine Medical Oncology; Visit Provider Internal Medicine
DX: Z12.31 Encounter for screening mammogram for malignant neoplasm of breast (principal)
CPT/HCPCS: 77063; 77067

== ENCOUNTER 2023-07-25 16:09 | Outpatient (CLI) | payer MEDICARE, BC, SELFPAY ==
--- NOTE | 2023-07-25 | MR_ITS ---
WS: [id number] MRI RIGHT SHOULDER HISTORY: RT ROTATOR CUFF SYNDROME COMPARISON: Radiographs 06/21/2023 TECHNIQUE: Multiplanar sequences of the shoulder joint are submitted. Moderate AC joint arthritis. Hypertrophic bone formation encroaching upon the supraspinatus tendon an d muscle. AC joint is narrowed. Mild subacromial impingement. Moderate fluid in the subacromial and s ubdeltoid bursa. Biceps tendon in the bicipital groove. No os acromion. Significant motion artifact on several of the sequences. Quantification of the rotator cuff tears cou ld not be accurately evaluated due to the amount of motion. Thickening and increased T2 signal in the distal supraspinatus tendon beginning at the level of the AC joint encroachment. At the insertion si te of the supraspinatus tendon there is fluid extending throughout the tendon suggesting insertion si te tear without retraction. There is at least moderate tendinopathy in the infraspinatus and subscapu adarsh tendons. Tears cannot be excluded with this amount of motion. No marrow edema or fracture. No labral tear. IMPRESSION: 1. Quality of this examination is suboptimal due to significant motion artifact on nearly all of the sequences. 2. Moderate AC joint arthritis with encroachment upon the supraspinatus myotendinous insertion. 3. Subacromial and subdeltoid bursitis. 4. Moderate tendinopathy in the distal supraspinatus with additional insertion site tear. No retracti on of the tendon. 5. Tendinopathy in the distal subscapularis and infraspinatus tendons. Due to the motion tear is not excluded.
== END 2023-07-25 16:10 | disposition home or self-care (01) ==
LOC: RAD 16:10
PROVIDERS: PCP Internal Medicine; Visit Provider Internal Medicine
DX: M75.101 Unspecified rotator cuff tear or rupture of right shoulder, not specified as traumatic (principal)
CPT/HCPCS: 73221

== ENCOUNTER → 2023-08-07 10:35 | Outpatient (BNVA) | payer MEDICARE, BC, SELFPAY | PROVIDERS: PCP Internal Medicine; Visit Provider Specialist | DX: M25.812 Other specified joint disorders, left shoulder; M19.012 Primary osteoarthritis, left shoulder; M75.102 Unspecified rotator cuff tear or rupture of left shoulder, not specified as traumatic | CPT/HCPCS: 73030; 99214 ==

== ENCOUNTER 2023-08-17 11:06 | Day surgery (SDC) | payer MEDICARE, BC, SELFPAY ==
[2023-08-17] VITALS (9 sets, daily range): BP systolic 122–182; BP diastolic 65–96; PULSE 56–79; RESP 12–16; TEMP 36.1; O2SAT 96–99; BMI 28.3
[2023-08-17] MEDS: sodium chloride 0.9% 1,000 ML 30 ML IV (11:39)
[2023-08-17] MEDS: acetaminophen 1,000 MG/100 ML PIGGYBACK 400 MG IV (11:39)
--- NOTE | 2023-08-17 12:59 | P.HPUD_ITS ---
Surgery/Procedure H&P Update DATE OF PROCEDURE: August 17, 2023 DATE H&P PERFORMED: 08/07/23 H&P UPDATE INFORMATION: I have reviewed H&P completed within last 30 days, I have examined patient prior to procedure, No changes to prior documentation and H&P is in [facility] [place] on date indicated PLANNED PROCEDURE: Operation Date: 08/17/23 12:30 Proposed Procedures p right shoulder open distal clavicle resection 77756 acromioplasty 71362 and possible rotator cuff repair 88627,M25.811,M19.011,M75.101(Right) - Rosa Mckeon MD s Acromioplasty(Right) - Rosa Mckeon MD s possible rotator cuff repair 77626(Right) - Rosa Mckeon MD Related Problem List Diagnoses (1) Supraspinatus tendon tear: Qualifiers: Laterality: left Qualified Code(s): M75.102 - Unspecified rotator cuff tear or rupture of left shoulder, not specified as traumatic (2) Impingement of left shoulder: (3) Osteoarthritis of left acromioclavicular joint:
[2023-08-17] MEDS: ceFAZolin 2,000 MG in sodium chloride 0.9% (plus) 50 ML 100 MG IV (13:06)
--- NOTE | 2023-08-17 13:44 | ANES.PREANE2 ---
Pre-Anesthetic Assessment Height/Weight: Height 1.65 m Weight 77.111 kg O2 Del Method Room Air 08/17/23 11:21 Operation Date: 08/17/23 12:30 Proposed Procedures p right shoulder open distal clavicle resection 59685 acromioplasty 87219 and possible rotator cuff repair 01018,M25.811,M19.011,M75.101(Right) - Rosa Mckeon MD s Acromioplasty(Right) - Rosa Mckeon MD s possible rotator cuff repair 19488(Right) - Rosa Mckeon MD Familial anesthetic complications: none Was Beta Miley taken within 24 hours: N/A Was Clonidine taken within 24 hours: N/A Last intake: Intake Last Liquid Date 08/16/23 Last Liquid Time 23:50 Last Solid Date 08/16/23 Last Solid Time 23:50 Social No alcohol and No tobacco Exam alert, oriented x 3, clear to auscultation bilaterally and regular rate & rhythm Airway Submandibular: within normal limits Cervical ROM: within normal limits Mallampati: Class II Dentition: chipped CV/HEM Anemia Metabolic Hyperlipidemia and Thyroid Disease [facility] [place] Osteoarthritis/DJD Anesthetic Plan ASA status: 2 Anesthesia: General and Regional (specify below) (Right interscalene nerve blk) Medications/Allergies Home Medications Medication Instructions Recorded Confirmed Last Taken Type bupropion HCl 300 mg 24 hr tablet, 300 mg PO QAM 09/12/22 08/16/23 08/16/23 History extended release cetirizine 10 mg capsule (All Day 10 mg PO DAILY PRN Allergy Symptoms 09/12/22 08/16/23 08/16/23 History Allergy (cetirizine)) gabapentin 300 mg capsule 300 mg PO BID 09/12/22 08/16/23 08/16/23 History glucosamine [id number]-G1-[id number] 1 tab PO DAILY 09/12/22 08/16/23 08/16/23 History juan 1,500 mg-400 unit-100 mg tablet (Osteo Bi-Flex (5-Loxin)) levothyroxine 88 mcg tablet 88 mcg PO DAILY 09/12/22 08/16/23 08/16/23 History loratadine 10 mg tablet (Claritin) 10 mg PO DAILY 09/12/22 08/16/23 08/16/23 History meloxicam 15 mg tablet 15 mg PO DAILY 09/12/22 08/16/23 08/16/23 History simvastatin 20 mg tablet 20 mg PO DAILY 09/12/22 08/16/23 08/16/23 History cholecalciferol (vitamin D3) 25 25 mcg PO DAILY 11/23/22 08/16/23 08/16/23 History mcg (1,000 unit) capsule cranberry fruit concentrate 250 mg 250 mg PO DAILY 11/23/22 08/16/23 08/16/23 History chewable tablet (Azo Cranberry) lactobacillus combination no.9 4 4,000 mmu cells PO DAILY 11/23/22 08/16/23 08/15/23 History billion cell capsule (Adult 50 Plus Probiotic) magnesium 250 mg tablet 250 mg PO DAILY 11/23/22 08/16/23 08/16/23 History multivitamin 1 tab PO DAILY 11/23/22 08/16/23 12/08/22 History coenzyme Q10 10 mg capsule (Co 10 mg PO TID 12/06/22 08/16/23 08/16/23 History Q-10) ferrous sulfate 325 mg (65 mg 325 mg PO DAILY 12/06/22 08/16/23 08/15/23 History iron) tablet prevagen 1 tab PO DAILY 12/06/22 08/16/23 08/16/23 History Allergies Allergy/AdvReac Type Severity Reaction Status Date / Time bacitracin Allergy Mild rash Verified 08/17/23 11:26 [From Neosporin ([id number])] ibuprofen Allergy Mild rash Verified 08/17/23 11:26 neomycin Allergy Mild rash Verified 08/17/23 11:26 [From Neosporin ([id number])] polymyxin B Allergy Mild rash Verified 08/17/23 11:26 [From Neosporin ([id number])] buspirone Allergy Intermediate ADR-Agitate Uncoded 08/17/23 11:26 d celebrex Allergy Intermediate rash Uncoded 08/17/23 11:26 citalopram Allergy Intermediate ADR-Insomni Uncoded 08/17/23 11:26 a pantoprozole Allergy Intermediate ADR-Diarrhe Uncoded 08/17/23 11:26 a excederin Allergy Mild rash Uncoded 08/17/23 11:26 clindamycin Allergy ADR-Itching Uncoded 08/17/23 11:26 clobetasol Allergy rash Uncoded 08/07/23 10:27 monelukast Allergy ADR-Agitate Uncoded 08/07/23 10:27 d pseudoephedrine Allergy ADR-Dry Uncoded 08/07/23 10:27 Mucus Membranes Current Medications Generic Name Dose Route Start Last Admin Trade Name Isaakq PRN Reason Stop Dose Admin Sodium Chloride 1,000 mls @ 30 mls/hr 08/17/23 11:30 08/17/23 11:39 Sodium Chloride 0.9% IV 08/18/23 11:29 30 mls/hr .Q24H EFREM Administration PFSH Anesthesia Family History Other Dementia Social History Smoking and tobacco/nicotine status: never used tobacco/nicotine Second hand smoke exposure: No Alcohol intake: never Substance/Drug Use: never Adopted: No Caregiver/support person: Yes Lives independently: No Household members: spouse Housing: House Marital status: Number of children: 2 Number of grandchildren: 0 Highest education level completed: High School Graduate service: No Current occupational status: retired Current occupational exposures/hazards: No Pets and animals: Yes Sexually active: Yes Do you think of yourself as: Straight/Heterosexual Current gender identity: Female Special wagner needs: No Agree to transfusion: Yes Data Anesthesia Cardiac Studies: No Data to Display Anesthesia Procedures Nerve Block Nerve Block 1: Main Anesthesia: general anesthesia Time Out Performed: Yes Consent: requested by attending/covering physician, from patient, risks and benefits reviewed and patient agrees to proceed Nerve block location: interscalene (right) Anesthesia monitors applied: pulse oximetry, EKG, BP cuff and oxygen Nerve block position: semi sitting Anesthetic Used: ropivicaine 0.5% Amount of anesthesia used (mL): 30 Ultrasound used to: recognize landmarks and visualize and ID brachial plexus Nerve Stimulator Used?: No Interscalene/Femoral BLK: 2 stimuplex 22 g needle used for position and inplane approach Injection: neg aspiration of heme Patient Tolerated Procedure: well Complications: none
[2023-08-17] MEDS: ceFAZolin 1,000 mg SDV 1000 MG IRRIGATION (14:03)
--- NOTE | 2023-08-17 15:54 | PM.OP ---
Operative Report Date of procedure: August 17, 2023 Pre-op diagnosis: Right shoulder rotator cuff tear with impingement and acromioclavicular joint osteoarthritis Post-op diagnosis: Right shoulder rotator cuff tear with impingement and acromioclavicular joint osteoarthritis Post-op findings: Right shoulder large rotator cuff tear with horizontal and vertical components, impingement, and significant acromioclavicular joint osteoarthritis Procedure done: Right rotator cuff repair with acromioplasty and distal clavicle resection Implants: Biosteon intra lining 5.5 mm suture anchor with 2 x #2 Force Fiber's each x 2 implants Specimens removed/disposition: None Surgeon: Rosa Mckeon MD 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 Condition: stable Disposition: same day (Then discharged to home) Brief History: This 67-year-old woman who was previously treated by nd for left shoulder rotator cuff tear presented with complaints of similar findings in the right shoulder. The patient had a workup which indicated a rotator cuff tear. She had pain stiffness and limited range of motion. The patient, after discussion, wished to proceed with rotator cuff repair, acromioplasty, and distal clavicle resection. Risks and complications were discussed with her. Consents were signed and questions were answered. Procedure: The patient was brought to the operating theater and underwent general intubated anesthesia, ASA 2 uneventfully. The patient was placed in a beachchair position and subsequently the right upper extremity was prepped and draped in the usual fashion utilizing DuraPrep. The arm was draped free. A surgical pause was performed prior to commencement of the surgical procedure. At the time of the surgical pause, we confirmed the site and side of surgery as well as administration of appropriate preoperative antibiotics Ancef 2 g. MRI was also reviewed at that time. Following the surgical pause, an incision was made at approximately the level of the acromioclavicular joint extending across the anterolateral corner of the acromion and distally as necessary. Care was taken to avoid injury to the axillary nerve by limiting the distal extent of the incision. Dissection continued through skin and soft tissues using a scalpel. Hemostasis was obtained using electrocautery. Soft tissues were elevated off the acromion. An acromioplasty was then accomplished using a combination of a saw and a power rasp. With this, we were able to remove compression caused by the acromion. Care was taken to avoid too much resection of the acromion as it was quite thinned. It was filed smooth following resection. The rotator cuff was then evaluated to look for tears. As noted in the MRI, there was a tear in the supraspinatus tendon which was quite complex and included a vertical and horizontal tear. The remainder of the rotator cuff was evaluated and no further tear was identified. This tear, however was quite extensive, and it involved the supraspinatus as well as the infraspinatus tendons. The rotator cuff tear was evaluated. The edges were freshened using a scalpel. The tear was noted to involve the supraspinatus and infraspinatus tendons with vertical and horizontal components. The edges were freshened and the tears were evaluated. Repair was accomplished using 0 Ethibond in an interrupted fashion in the vertical portions of the tear. Additionally, 2 suture anchors with 2 Force Fiber sutures each was utilized to close the horizontal portion of the rotator cuff tear down to the humerus which have been freshened with a rongeur. After the rotator cuff had been thus addressed, the shoulder was placed through further range of motion to assure there was no further evidence of rotator cuff tear. The acromioclavicular joint was exposed. A saw was then used to resect the distal clavicle without difficulty. The undersurface of the clavicle was palpated, and there was significant enlargement of the distal clavicle which caused significant degree of impingement. Therefore, the saw and rasp were used on the undersurface of the clavicle as well. A power rasp was used to further smooth the area. When this was felt to be adequately resected, the wound was irrigated. Attention was then directed to closure. The wound was irrigated and closure was accomplished with 0 Vicryl in the capsular tissues overlying the acromioclavicular joint area as well as over the acromion and down into the deltoid muscle. 2-0 Monocryl was used to close the subcutaneous tissues followed by 3-0 Monocryl subcuticular closure. This was followed by Dermabond, Steri-Strips and OpSite. The patient was placed in a slingshot style sling and was returned to the recovery room in satisfactory condition. The patient will be discharged to home to follow-up with me in the office. There were no complications and no specimens. Related Problem List Diagnoses (1) Supraspinatus tendon tear: (2) Impingement of right shoulder: (3) Osteoarthritis of right acromioclavicular joint:
[2023-08-17] MEDS: HYDROcodone-acetaminophen 5-325 mg Tablet 1 TAB PO (16:17)
--- NOTE | 2023-08-17 17:16 | ANE.PACU2 ---
Inpatient post-anesthesia follow up: Airway intact: Yes Vital signs: Temperature 97.0 F Pulse Rate 61 Respiratory Rate 16 Blood Pressure 145/82 Pulse Oximetry 99 Oxygen Delivery Me thod Room Air Oxygen Flow Rate 6 Fraction of Inspir ed Oxygen Hydration adequate: Yes Nausea and vomiting: No Pain level: 1 Mental status: Baseline
== END 2023-08-17 17:00 | disposition home or self-care (01) ==
PROVIDERS: PCP Internal Medicine; Visit Provider Specialist
PROC: (CPT 23120; principal; 2023-08-17 12:30)
PROC: (CPT 23130; 2023-08-17 12:30)
PROC: (CPT 23120; 2023-08-17 12:30)
DX: M75.101 Unspecified rotator cuff tear or rupture of right shoulder, not specified as traumatic (principal); M25.811 Other specified joint disorders, right shoulder; M19.011 Primary osteoarthritis, right shoulder; E78.5 Hyperlipidemia, unspecified
CPT/HCPCS: 23120; 23412; C1713; J0131; J0690; J1100; J2405; J2704; J2795; J3010; J3490; J7030

== ENCOUNTER → 2023-08-31 09:16 | Outpatient (BNVA) | payer MEDICARE, BC, SELFPAY | PROVIDERS: PCP Internal Medicine; Visit Provider Nurse Practitioner | DX: Z98.890 Other specified postprocedural states (principal); M25.812 Other specified joint disorders, left shoulder; M75.101 Unspecified rotator cuff tear or rupture of right shoulder, not specified as traumatic | CPT/HCPCS: 99024 ==

== ENCOUNTER → 2023-09-22 09:48 | Outpatient (BNVA) | payer MEDICARE, BC, SELFPAY | PROVIDERS: PCP Internal Medicine; Visit Provider Nurse Practitioner | DX: Z98.890 Other specified postprocedural states (principal); M25.812 Other specified joint disorders, left shoulder; M75.101 Unspecified rotator cuff tear or rupture of right shoulder, not specified as traumatic | CPT/HCPCS: 99024 ==

== ENCOUNTER → 2023-10-13 10:07 | Outpatient (BNVA) | payer MEDICARE, BC, SELFPAY | PROVIDERS: PCP Internal Medicine; Visit Provider Nurse Practitioner | DX: Z98.890 Other specified postprocedural states (principal); M25.812 Other specified joint disorders, left shoulder; M75.101 Unspecified rotator cuff tear or rupture of right shoulder, not specified as traumatic | CPT/HCPCS: 99024 ==

== ENCOUNTER 2023-10-23 09:29 | Outpatient (RCR) | payer MEDICARE, BC, SELFPAY | END 2023-10-26 23:59 | disposition home or self-care (01) | LOC: SPT 09:29 | PROVIDERS: PCP Internal Medicine; Visit Provider Nurse Practitioner | DX: M75.101 Unspecified rotator cuff tear or rupture of right shoulder, not specified as traumatic (principal) | CPT/HCPCS: 97110; 97161 ==

== ENCOUNTER 2023-10-27 06:00 | Outpatient (RCR) | payer MEDICARE, BC, SELFPAY | END 2023-11-26 23:59 | disposition home or self-care (01) | LOC: SPT 06:00 | PROVIDERS: PCP Internal Medicine; Visit Provider Nurse Practitioner | DX: M75.101 Unspecified rotator cuff tear or rupture of right shoulder, not specified as traumatic (principal) | CPT/HCPCS: 97110 ==

== ENCOUNTER → 2023-11-06 13:14 | Outpatient (BNVA) | payer MEDICARE, BC, SELFPAY | PROVIDERS: PCP Internal Medicine; Visit Provider Specialist | DX: M19.011 Primary osteoarthritis, right shoulder (principal); M25.811 Other specified joint disorders, right shoulder | CPT/HCPCS: 20610 ==

== ENCOUNTER → 2023-11-24 09:45 | Outpatient (BNVA) | payer MEDICARE, BC, SELFPAY | PROVIDERS: PCP Internal Medicine; Visit Provider Nurse Practitioner | DX: Z98.890 Other specified postprocedural states (principal); M25.811 Other specified joint disorders, right shoulder; M75.101 Unspecified rotator cuff tear or rupture of right shoulder, not specified as traumatic | CPT/HCPCS: 99213 ==

== ENCOUNTER 2023-11-27 06:00 | Outpatient (RCR) | payer MEDICARE, BC, SELFPAY | END 2023-12-21 23:59 | disposition home or self-care (01) | LOC: SPT 06:00 | PROVIDERS: PCP Internal Medicine; Visit Provider Nurse Practitioner | DX: Z98.890 Other specified postprocedural states (principal) | CPT/HCPCS: 97110 ==

== ENCOUNTER → 2023-12-07 09:48 | Outpatient (BNVA) | payer MEDICARE, BC, SELFPAY | PROVIDERS: PCP Internal Medicine; Visit Provider Podiatrist Foot & Ankle Surgery | DX: Z87.39 Personal history of other diseases of the musculoskeletal system and connective tissue (principal); M10.9 Gout, unspecified; S82.52XA Displaced fracture of medial malleolus of left tibia, initial encounter for closed fracture; X58.XXXA Exposure to other specified factors, initial encounter | CPT/HCPCS: 99213 ==

== ENCOUNTER → 2023-12-28 09:54 | Outpatient (BNVA) | payer MEDICARE, BC, SELFPAY | PROVIDERS: PCP Internal Medicine; Visit Provider Podiatrist Foot & Ankle Surgery | DX: Z87.39 Personal history of other diseases of the musculoskeletal system and connective tissue (principal); L60.3 Nail dystrophy | CPT/HCPCS: 99213 ==

== ENCOUNTER → 2024-01-08 08:21 | Outpatient (BNVA) | payer MEDICARE, BC, SELFPAY | PROVIDERS: PCP Internal Medicine; Visit Provider Specialist | DX: Z98.890 Other specified postprocedural states (principal) | CPT/HCPCS: 73030; 99213 ==

== ENCOUNTER 2024-02-19 16:13 | Outpatient (CLI) | payer MEDICARE, BC, SELFPAY ==
[2024-02-19 17:20] LABS: Alanine Aminotransferase 16 U/L (0-33); Albumin Level 4.5 g/dL (3.5-5.2); Alkaline Phosphatase 95 U/L (35-105); Anion Gap 14.5 (5-19); Aspartate Amino Transferase 18 U/L (0-32); Blood Urea Nitrogen 16 mg/dL (8-23); Calcium 9.6 mg/dL (8.5-10.5); Carbon Dioxide 26 mmol/L (22-29); Chloride 105 mmol/L (98-107); Globulin 2.8 g/dL (1.3-4.6); Glomerular Filtration Rate 62.3 mL/min (90-130); Glucose 85 mg/dL (65-115); Osmolality Calculated 292 mOsm/kg (285-295); Potassium 4.5 mmol/L (3.5-5.1); Sodium 141 mmol/L (136-145); Total Bilirubin 0.3 mg/dL (0.15-1.2); Total Protein 7.3 g/dL (6.6-8.7)
== END 2024-02-19 16:14 | disposition home or self-care (01) ==
LOC: LAB 16:15
PROVIDERS: PCP Internal Medicine; Visit Provider Podiatrist Foot & Ankle Surgery
DX: B35.1 Tinea unguium (principal); Z79.899 Other long term (current) drug therapy
CPT/HCPCS: 36415; 80053

== ENCOUNTER → 2024-03-04 09:26 | Outpatient (BNVA) | payer MEDICARE, BC, SELFPAY | PROVIDERS: PCP Internal Medicine; Visit Provider Specialist | DX: Z98.890 Other specified postprocedural states (principal) | CPT/HCPCS: 99213 ==

== ENCOUNTER 2024-04-03 10:56 | Outpatient (CLI) | payer MEDICARE, BC, SELFPAY ==
--- NOTE | 2024-04-03 11:05 | MM_ITS ---
WS: [id number] BILATERAL 3D TOMOSYNTHESIS DIGITAL SCREENING MAMMOGRAPHY WITH CAD CLINICAL INFORMATION: SCREENING HISTORY: Screening mammogram. No current complaints. COMPARISON: 03/31/2023 TECHNIQUE: Bilateral CC and MLO views. FINDINGS: The breasts are composed of heterogeneous fibroglandular density tissue, which can limit the detectio n of small underlying mass lesions. No suspicious mass, asymmetry, calcifications, or architectural d istortion. No evidence of malignancy. Vascular calcifications. MM/[place] [id number] IMPRESSION: BI-RADS: 2-Benign FOLLOW UP: 1 Year Follow-up Recommend return to annual screening mammography.
== END 2024-04-03 10:57 | disposition home or self-care (01) ==
LOC: RAD 10:57
PROVIDERS: PCP Internal Medicine; Visit Provider Internal Medicine
DX: Z12.31 Encounter for screening mammogram for malignant neoplasm of breast (principal)
CPT/HCPCS: 77063; 77067

== ENCOUNTER → 2024-04-22 09:28 | Outpatient (BNVA) | payer MEDICARE, BC, SELFPAY | PROVIDERS: PCP Internal Medicine; Visit Provider Podiatrist Foot & Ankle Surgery | DX: Z87.39 Personal history of other diseases of the musculoskeletal system and connective tissue (principal); L60.3 Nail dystrophy | CPT/HCPCS: 99213 ==

== ENCOUNTER 2025-04-04 10:14 | Outpatient (CLI) | payer MEDICARE, OTHER, SELFPAY ==
--- NOTE | 2025-04-04 10:20 | MM_ITS ---
WS: [id number] BILATERAL 3D TOMOSYNTHESIS DIGITAL SCREENING MAMMOGRAPHY WITH CAD CLINICAL INFORMATION: SCREENING HISTORY: Screening mammogram. No current complaints. COMPARISON: 2023 TECHNIQUE: Bilateral CC and MLO views. FINDINGS: Scattered fibroglandular densities bilaterally. No suspicious focal mass, asymmetry, calcifications, or architectural distortion. No evidence of malignancy. MM/MM scr BI tomosynthesis [id number] IMPRESSION: DENSITY: There are scattered areas of fibroglandular density. BI-RADS: 1 - Negative. FOLLOW UP: 1 Year Follow-up Recommend return to annual screening mammography.
== END 2025-04-04 10:15 | disposition home or self-care (01) ==
LOC: RAD 10:17
PROVIDERS: PCP Internal Medicine; Visit Provider Electrodiagnostic Medicine
DX: Z12.31 Encounter for screening mammogram for malignant neoplasm of breast (principal)
CPT/HCPCS: 77063; 77067

== ENCOUNTER → 2025-07-30 10:43 | Outpatient (BNVA) | payer MEDICARE, OTHER, SELFPAY | PROVIDERS: PCP Internal Medicine; Visit Provider Specialist | DX: M12.811 Other specific arthropathies, not elsewhere classified, right shoulder (principal) | CPT/HCPCS: 73030; 99214 ==

== ENCOUNTER 2025-08-13 08:05 | Outpatient (CLI) | payer MEDICARE, OTHER, SELFPAY ==
--- NOTE | 2025-08-13 08:45 | MR_ITS ---
WS: [id number] MRI RIGHT SHOULDER HISTORY: right shoulder pain COMPARISON: 07/25/2023 TECHNIQUE: Multiplanar sequences of the shoulder joint are submitted. Prior rotator cuff repair. Extensive artifact surrounding the shoulder from the prior repair. AC joint is narrowed. Mild synovial thickening. High riding humeral head abuts the undersurface of the acromion. Biceps tendon is absent from the bicipital groove. No os acromion. Severe degenerative changes involving the humeral head and the glenoid. Loss of cartilage with osteophytic ridging. Anchors present in the humeral head from prior rotator cuff repair. Atrophy of the supraspinatus and infraspinatus muscles. Subscapularis tendon is completely torn and retracted to the medial humeral head. There is additional fluid extending along the supraspinatus tendon more proximally. Subscapularis tendon appears intact. Infraspinatus tendon appears to be intact. There is surface irregularity. Tiny insertion site tear may be present. Small cyst in the posterior glenoid. Diffuse degenerative changes within the glenoid. No definite tears are identified. MR/MR shoulder RT wo con* [id number] IMPRESSION: 1. Complete supraspinatus tear with retraction to the medial humeral head. Wit hin the retracted tendon is an interstitial tear also. 2. Atrophy of the supraspinatus and infraspinatus muscles. 3. Surface fraying of the infraspinatus tendon and possible small insertion si te tear. 4. Prior rotator cuff repair. 5. Narrowed AC joint. 6. Absent biceps tendon from the bicipital groove. 7. Advanced degenerative changes of the glenohumeral joint.
== END 2025-08-13 08:06 | disposition home or self-care (01) ==
LOC: RAD 08:07
PROVIDERS: PCP Electrodiagnostic Medicine; Visit Provider Specialist
DX: M75.101 Unspecified rotator cuff tear or rupture of right shoulder, not specified as traumatic (principal)
CPT/HCPCS: 73221